=== PATIENT | male | born 1950 | race African-American/Black ===

== ENCOUNTER 2016-09-30 04:16 | Inpatient (IN) | payer MEDICARE, OTHER ==
[~2016-09-30] VITALS: Ht 165.1 cm; Wt 85.3 kg
[2016-09-30 05:30] VITALS: BP 138/87
[2016-09-30] MEDS: IV NORMAL SALINE 1000ML BAG 1,000 ML IV SCH ×2 (06:30→15:17)
[2016-09-30] MEDS ORDERED: ONDANSETRON PF 4 MG/2 ML VIAL. IV PRN (06:30)
[2016-09-30] MEDS ORDERED: HYDROMORPHONE 2 MG/ML VIAL. IV PRN (06:30)
[2016-09-30] MEDS ORDERED: DIPHENHYDRAMINE 50 MG/ML VIAL IVP PRN (06:30)
[2016-09-30 07:00] VITALS: BP 132/86
[2016-09-30 09:40] LABS: BASO % 1 % (0-3); EOS % 0 % (0-3); HEMATOCRIT 45.8 % (39.0-53.0); HEMOGLOBIN 15.4 g/dL (13.0-17.5); LYMPH # 1.9 x10^3/uL (1.0-4.8); LYMPH % 19 % (24-48); MEAN CORPUSCULAR HEMOGLOBIN 29 pg (25-35); MEAN CORPUSCULAR HGB CONC 34 g/dL (31-37); MEAN CORPUSCULAR VOLUME 85 fL (79-100); MONO % 8 % (0-9); NEUT % 72 % (31-73); PLATELET COUNT 164 x10^3/uL (140-400); RED BLOOD COUNT 5.37 x10^6/uL (4.30-5.70); RED CELL DISTRIBUTION WIDTH 15.5 % (11.5-14.5); WHITE BLOOD COUNT 9.8 x10^3/uL (4.0-11.0)
--- NOTE | 2016-09-30 09:43 | PDOC2 ---
GI CONSULT Reason For Consult: SBO HPI: HPI: 65 y/o AA male transferred from [facility] in [place] w/ SBO on imaging. CT unavailable to review, previous labs notable for elevated lactic acid 2.89. PMH significant for diverticulitis s/p bowel resection ~3 years ago w/ ostomy ( and take-down). Believes had a colonoscopy around that time as well. He says epigastric/LUQ pain began suddenly around 6:00 p.m. last night after eating dinner; he believes this was due to eating too quickly. Emesis x 1. Prior to onset of symptoms was feeling well w/o chronic GI issues except occasional GERD (untreated). Says last BM was 09/28; denies h/o constipation, diarrhea, hematochezia/melena. No weight loss, dysphagia. No previous EGD. Reports feeling much better w/ NG tube; now denies nausea, pain, and is feeling less bloated. Reports just passed gas. PMH: PMH: HTN, COPD, GERD, diverticulitis s/p bowel resection w/ ostomy/take-down FH: Family History: No pertinent hx (denies GI cancers) Social History: Smoke: Quit ALCOHOL: other (sober 5 months, previously drank heavily) ROS: GEN: Denies fevers, chills, sweats HEENT: Denies blurred vision, sore throat CV: Denies chest pain RESP: Denies shortness of air, cough GI: Per HPI : Denies hematuria, dysuria ENDO: Denies weight changes NEURO: Denies confusion, dizziness MSK: Denies weakness, joint pain/swelling SKIN: Denies jaundice, pruritus VItals: Vitals: Vital Signs Date Time Temp Pulse Resp B/P Pulse Ox O2 Delivery O2 Flow Rate FiO2 09/30/16 06:26 Room Air 09/30/16 05:30 97.9 90 18 138/87 96 97.9 Labs: Labs: - Allergies: Coded Allergies: No Known Drug Allergies (Unverified , 09/30/16) Medications: Current Medications Medications (Trade) Dose Ordered Sig/Suhas Route PRN Reason Start Time Stop Time Status Last Admin Dose Admin Sodium Chloride (Iv Sodium Chloride 0.9% 1000ml Bag) 1,000 ml @ 100 mls/hr Q10H IV 09/30/16 06:30 09/30/16 06:30 Imaging: Imaging: - PE: GEN: NAD HEENT: Atraumatic, PERRL LUNGS: CTAB HEART: RRR ABD: BS+, some distention, non-tender, midline and LLQ ostomy scar, NG w/ minimal dark output EXTREMITY: No edema SKIN: No rashes, no jaundice NEURO/PSYCH: A & O 3 A/P: A/P: SBO -transferred from [facility] in [place], no imaging to review Abd pain, vomiting, abd distention -all improved w/ NG - - > feeling better, now passing gas H/o diverticulitis s/p bowel resection CRC screen -reports colonoscopy ~3 years ago GERD -occasional, untreated, no previous EGD Elevated lactic acid -at [facility] -- Seems improved. Will check KUB and recheck lactic acid. PRINCE ZAMARRIPA Sep 30, 2016 09:42
[2016-09-30 09:49] LABS: INR 1.2 (0.8-1.1); PROTHROMBIN TIME PATIENT 14.6 SEC (11.7-14.0)
[2016-09-30 09:53] LABS: CALCIUM 8.8 mg/dL (8.5-10.1); CREATININE 0.9 mg/dL (0.7-1.3); GFR 103.1; POTASSIUM 3.6 mmol/L (3.5-5.1)
--- NOTE | 2016-09-30 10:09 | PDOC1 ---
History and Physical Date of Admission Date of Admission DATE: 09/30/16 TIME: 10:03 Identification/Chief Complaint Chief Complaint abd pain Source Source: Chart review, Patient History of Present Illness History of Present Illness Mr. Ramirez, is a 65 y/o AA male. [facility] [place] w/ abd abd distention and abd pain. Sudden onset of pain last PM NG tube placed overnight, initial pain improvement was slight, marked distention noted by ER doc for transfer CT consistent w/ SBO reported min lactic acid elevation and lipase elevation Large bowel resection done 3 years ago w/ ostomy NG is LIS, he feels much better, has flatus and Abd less distended this AM no stool 2 days Past Medical History Cardiovascular: HTN Musculoskeletal: low back pain, Osteoarthritis, Stiffness (ankle) ENT: No pertinent hx Renal/: No pertinent hx Endocrine: No pertinent hx Dermatology: No pertinent hx Past Surgical History Past Surgical History: Colon Resection Family History Family History: No Significant Social History Smoke: No ALCOHOL: none (sober 5 months, previously drank heavily) Drugs: None Current Medications Current Medications Current Medications Morphine Sulfate 4 mg PRN Q2HR PRN IV SEVERE PAIN; Start 09/30/16 at 06:30 Hydromorphone HCl (Dilaudid) 1 mg PRN Q4HRS PRN IV SEVERE PAIN; Start 09/30/16 at 06:30 Ondansetron HCl (Zofran) 4 mg PRN Q8HRS PRN IV NAUSEA/VOMITING; Start 09/30/16 at 06:30 Diphenhydramine HCl 25 mg 25 mg PRN Q6HRS PRN IVP ITCHING; Start 09/30/16 at 06 :30 Sodium Chloride (Iv Sodium Chloride 0.9% 1000ml Bag) 1,000 ml @ 100 mls/hr Q10H IV Last administered on 09/30/16t 06:30; Start 09/30/16 at 06:30 Allergies Allergies: Coded Allergies: No Known Drug Allergies (Unverified , 09/30/16) ROS General: No: Appetite, Chills, Fatigue, Malaise, Night Sweats, Other PSYCHOLOGICAL ROS: No: Anxiety, Behavioral Disorder, Concentration difficultie , Decreased libido, Depression, Disorientation, Hallucinations, Hostility, Irritablity, Memory difficulties, Mood Swings, Obsessive thoughts, Other, Physical abuse, Sexual abuse, Sleep disturbances, Suicidal ideation Eyes: No Blurry vision, No Decreased vision, No Double vision, No Dry eyes, No Excessive tearing, No Eye Pain, No Itchy Eyes, No Loss of vision, No Other, No Photophobia, No Scotomata, No Uses contacts, No Uses glasses HEENT: No: Epistaxis, Heacaches, Hearing change, Nasal congestion, Nasal discharge, Oral lesions, Other, Sinus pain, Sneezing, Snoring, Sore Throat, Tinnitus, Vertigo, Visual Changes, Vocal changes Respiratory: No: Cough, Hemoptysis, Orthopnea, Other, Pleuritic Pain, SOB with excertion, Shortness of breath, Sputum Changes, Stridor, Tachypnea, Wheezing Cardiovascular: No Chest Pain, No Edema, No Lt Headedness, No Orthopnea, No Other, No Palpitations, No Paroxysmal Noc. Dyspnea Gastrointestinal: Yes Abdominal Pain, Yes Nausea, Yes Vomiting, No Constipation, No Diarrhea, No Hematochezia, No Melena, No Other Genitourinary: No , No , No , No , No , No , No , No Discharge, No Dysuria, No Flank Pain, No Frequency, No Hematuria, No Incontinence, No Other, No Pain, No Retention, No Urgency Musculoskeletal: Yes Joint Pain, Yes Joint Stiffness, Yes Pain In: (back, ankle ), No Gait Disturbance, No Joint Swelling, No Muscle Pain, No Muscular Weakness , No Other, No Swelling In: Neurological: No Behavorial Changes, No Bowel/Bladder ControlChng, No Confusion , No Dizziness, No Gait Disturbance, No Headaches, No Impaired Coord/balance, No Memory Loss, No Numbness/Tingling, No Other, No Seizures, No Speech Problems , No Tremors, No Visual Changes, No Weakness Skin: No Acne, No Dry Skin, No Eczema, No Hair Changes, No Lumps, No Mole Changes, No Mottling, No Nail Changes, No Other, No Pruritus, No Rash, No Skin Lesion Changes Physical Exam General: Alert, mild distress HEENT: Atraumatic, PERRLA, EOMI, Mucous membr. moist/pink Lungs: Clear to auscultation, Normal air movement Heart: no gallops, no murmurs Abdomen: Normal bowel sounds, Soft, No masses, Other (extensive scar, keloid from prior surg, midline scar, , less distended) Rectal Exam: not examined Extremities: No clubbing, No cyanosis, No edema, Normal pulses Skin: No rashes, No significant lesion Neuro: Normal speech, Normal tone, Sensation intact Psych/Mental Status: Mental status NL, Mood NL Vitals Vitals Vital Signs Date Time Temp Pulse Resp B/P Pulse Ox O2 Delivery O2 Flow Rate FiO2 09/30/16 07:00 98.2 98 20 132/86 97 Room Air 98.2 Labs Labs Laboratory Tests Test 09/30/16 09:25 White Blood Count 9.8x10^3/uL (4.0-11.0) Red Blood Count 5.37x10^6/uL (4.30-5.70) Hemoglobin 15.4g/dL (13.0-17.5) Hematocrit 45.8% (39.0-53.0) Mean Corpuscular Volume 85fL (79-100) Mean Corpuscular Hemoglobin 29pg (25-35) Mean Corpuscular Hemoglobin Concent 34g/dL (31-37) Red Cell Distribution Width 15.5% (11.5-14.5) Platelet Count 164x10^3/uL (140-400) Neutrophils (%) (Auto) 72% (31-73) Lymphocytes (%) (Auto) 19% (24-48) Monocytes (%) (Auto) 8% (0-9) Eosinophils (%) (Auto) 0% (0-3) Basophils (%) (Auto) 1% (0-3) Neutrophils # (Auto) 7.1x10^3uL (1.8-7.7) Lymphocytes # (Auto) 1.9x10^3/uL (1.0-4.8) Monocytes # (Auto) 0.8x10^3/uL (0.0-1.1) Eosinophils # (Auto) 0.0x10^3/uL (0.0-0.7) Basophils # (Auto) 0.0x10^3/uL (0.0-0.2) Prothrombin Time 14.6SEC (11.7-14.0) Prothromb Time International Ratio 1.2 (0.8-1.1) Sodium Level 138mmol/L (136-145) Potassium Level 3.6mmol/L (3.5-5.1) Chloride Level 103mmol/L (98-107) Carbon Dioxide Level 25mmol/L (21-32) Anion Gap 10 (6-14) Blood Urea Nitrogen 12mg/dL (8-26) Creatinine 0.9mg/dL (0.7-1.3) Estimated GFR (Cockcroft-Gault) 103.1 Glucose Level 125mg/dL (70-99) Calcium Level 8.8mg/dL (8.5-10.1) Laboratory Tests Test 09/30/16 09:25 White Blood Count 9.8x10^3/uL (4.0-11.0) Red Blood Count 5.37x10^6/uL (4.30-5.70) Hemoglobin 15.4g/dL (13.0-17.5) Hematocrit 45.8% (39.0-53.0) Mean Corpuscular Volume 85fL (79-100) Mean Corpuscular Hemoglobin 29pg (25-35) Mean Corpuscular Hemoglobin Concent 34g/dL (31-37) Red Cell Distribution Width 15.5% (11.5-14.5) Platelet Count 164x10^3/uL (140-400) Neutrophils (%) (Auto) 72% (31-73) Lymphocytes (%) (Auto) 19% (24-48) Monocytes (%) (Auto) 8% (0-9) Eosinophils (%) (Auto) 0% (0-3) Basophils (%) (Auto) 1% (0-3) Neutrophils # (Auto) 7.1x10^3uL (1.8-7.7) Lymphocytes # (Auto) 1.9x10^3/uL (1.0-4.8) Monocytes # (Auto) 0.8x10^3/uL (0.0-1.1) Eosinophils # (Auto) 0.0x10^3/uL (0.0-0.7) Basophils # (Auto) 0.0x10^3/uL (0.0-0.2) Prothrombin Time 14.6SEC (11.7-14.0) Prothromb Time International Ratio 1.2 (0.8-1.1) Sodium Level 138mmol/L (136-145) Potassium Level 3.6mmol/L (3.5-5.1) Chloride Level 103mmol/L (98-107) Carbon Dioxide Level 25mmol/L (21-32) Anion Gap 10 (6-14) Blood Urea Nitrogen 12mg/dL (8-26) Creatinine 0.9mg/dL (0.7-1.3) Estimated GFR (Cockcroft-Gault) 103.1 Glucose Level 125mg/dL (70-99) Calcium Level 8.8mg/dL (8.5-10.1) VTE Prophylaxis Ordered VTE Prophylaxis Devices: Yes VTE Pharmacological Prophylaxi: No Assessment/Plan Assessment/Plan Acute abd pain with bloating, SBO on CT scan extensive prior abd surg with partial colectomy due to diverticular disease obesity, BMI 32 sore throat NG LIS, abd pain better, has flatus AFIA MEADE MD Sep 30, 2016 10:09
--- NOTE | 2016-09-30 10:12 | RAD ---
Portable abdomen, 09/30/2016: History: Vomiting, partial small bowel obstruction A supine view of the abdomen was obtained. No previous imaging is available for correlative purposes. There is mild gaseous distention of a couple of small bowel loops in the central abdomen. There is gas and stool in the colon without evidence of colonic distention. There is no evidence of organomegaly. No abnormal abdominal calcifications are seen. An NG tube is incompletely delineated in the left upper quadrant, apparently extending into the stomach. IMPRESSION: Mild gaseous distention of several small bowel loops in the midabdomen compatible with low-grade partial small bowel obstruction or minimal ileus.
[2016-09-30] MEDS ORDERED: PHENOL ORAL SPRAY 177ML BOTTLE. PO PRN (10:15)
[2016-09-30 11:00] VITALS: BP 140/80
--- NOTE | 2016-09-30 12:31 | PDOC2 ---
MARIELLA GONZALEZ [employer] 09/30/16 1231: CONSULT Date of Consult Date of Consult DATE: 09/30/16 TIME: 12:26 Reason for Consult Reason for Consult: sbo Referring Physician Referring Physician: ER Identification/Chief Complaint Chief Complaint abdominal pain Source Source: Chart review, Patient History of Present Illness Reason for Visit: Acute onset of epigastric abdominal pain yesterday after dinner. + emesis, distention. Has a history of diverticulitis requiring operation and ostomy/ reversal. Currently no pain, + flatus and overall feeling better Past Medical History Cardiovascular: HTN Musculoskeletal: low back pain, Osteoarthritis, Stiffness (ankle) ENT: No pertinent hx Renal/: No pertinent hx Endocrine: No pertinent hx Dermatology: No pertinent hx Past Surgical History Past Surgical History: Colon Resection Family History Family History: No Significant Social History No ALCOHOL: none (sober 5 months, previously drank heavily) Drugs: None Current Medications Current Medications Current Medications Morphine Sulfate 4 mg PRN Q2HR PRN IV SEVERE PAIN; Start 09/30/16 at 06:30 Hydromorphone HCl (Dilaudid) 1 mg PRN Q4HRS PRN IV SEVERE PAIN; Start 09/30/16 at 06:30 Ondansetron HCl (Zofran) 4 mg PRN Q8HRS PRN IV NAUSEA/VOMITING; Start 09/30/16 at 06:30 Diphenhydramine HCl 25 mg 25 mg PRN Q6HRS PRN IVP ITCHING; Start 09/30/16 at 06 :30 Sodium Chloride (Iv Sodium Chloride 0.9% 1000ml Bag) 1,000 ml @ 100 mls/hr Q10H IV Last administered on 09/30/16t 06:30; Start 09/30/16 at 06:30 Throat Lozenges (Cepacol Sore Throat Lozenge) 1 kristen PRN Q2HRS PRN PO SORE THROAT; Start 09/30/16 at 10:15 Throat Lozenges (Chloraseptic) 1 spray PRN Q2HR PRN PO SORE THROAT; Start 09/30 at 10:15 Allergies Allergies: Coded Allergies: No Known Drug Allergies (Unverified , 09/30/16) ROS General: No: Chills, Other (fevers) PSYCHOLOGICAL ROS: No: Anxiety, Depression Eyes: No Blurry vision, No Double vision HEENT: No: Heacaches, Sore Throat Hematological and Lymphatic: No: Bleeding Problems, Blood Clots Respiratory: No: Cough, Shortness of breath Cardiovascular: No Chest Pain, No Palpitations Gastrointestinal: Yes Other (see hpi) Genitourinary: No Dysuria, No Hematuria Musculoskeletal: No Joint Pain, No Muscle Pain Neurological: No Impaired Coord/balance, No Numbness/Tingling Skin: No Pruritus, No Rash Physical Exam General: Alert, Oriented X3, Cooperative, No acute distress HEENT: Other (NG no drainage ) Lungs: Clear to auscultation, Normal air movement Heart: Regular rate, Normal S1, Normal S2 Abdomen: Soft, No tenderness, Other (large midline scar) Extremities: No clubbing, No cyanosis Skin: No rashes, No breakdown Neuro: Normal gait, Sensation intact Psych/Mental Status: Mental status NL, Mood NL MUSCULOSKELETAL: No deformity, No swelling Vitals VITALS Vital Signs Date Time Temp Pulse Resp B/P Pulse Ox O2 Delivery O2 Flow Rate FiO2 09/30/16 11:00 98.0 94 18 140/80 97 Room Air 98.0 Labs Labs Laboratory Tests Test 09/30/16 09:25 White Blood Count 9.8x10^3/uL (4.0-11.0) Red Blood Count 5.37x10^6/uL (4.30-5.70) Hemoglobin 15.4g/dL (13.0-17.5) Hematocrit 45.8% (39.0-53.0) Mean Corpuscular Volume 85fL (79-100) Mean Corpuscular Hemoglobin 29pg (25-35) Mean Corpuscular Hemoglobin Concent 34g/dL (31-37) Red Cell Distribution Width 15.5% (11.5-14.5) Platelet Count 164x10^3/uL (140-400) Neutrophils (%) (Auto) 72% (31-73) Lymphocytes (%) (Auto) 19% (24-48) Monocytes (%) (Auto) 8% (0-9) Eosinophils (%) (Auto) 0% (0-3) Basophils (%) (Auto) 1% (0-3) Neutrophils # (Auto) 7.1x10^3uL (1.8-7.7) Lymphocytes # (Auto) 1.9x10^3/uL (1.0-4.8) Monocytes # (Auto) 0.8x10^3/uL (0.0-1.1) Eosinophils # (Auto) 0.0x10^3/uL (0.0-0.7) Basophils # (Auto) 0.0x10^3/uL (0.0-0.2) Prothrombin Time 14.6SEC (11.7-14.0) Prothromb Time International Ratio 1.2 (0.8-1.1) Sodium Level 138mmol/L (136-145) Potassium Level 3.6mmol/L (3.5-5.1) Chloride Level 103mmol/L (98-107) Carbon Dioxide Level 25mmol/L (21-32) Anion Gap 10 (6-14) Blood Urea Nitrogen 12mg/dL (8-26) Creatinine 0.9mg/dL (0.7-1.3) Estimated GFR (Cockcroft-Gault) 103.1 Glucose Level 125mg/dL (70-99) Lactic Acid Level 1.4mmol/L (0.4-2.0) Calcium Level 8.8mg/dL (8.5-10.1) Laboratory Tests Test 09/30/16 09:25 White Blood Count 9.8x10^3/uL (4.0-11.0) Red Blood Count 5.37x10^6/uL (4.30-5.70) Hemoglobin 15.4g/dL (13.0-17.5) Hematocrit 45.8% (39.0-53.0) Mean Corpuscular Volume 85fL (79-100) Mean Corpuscular Hemoglobin 29pg (25-35) Mean Corpuscular Hemoglobin Concent 34g/dL (31-37) Red Cell Distribution Width 15.5% (11.5-14.5) Platelet Count 164x10^3/uL (140-400) Neutrophils (%) (Auto) 72% (31-73) Lymphocytes (%) (Auto) 19% (24-48) Monocytes (%) (Auto) 8% (0-9) Eosinophils (%) (Auto) 0% (0-3) Basophils (%) (Auto) 1% (0-3) Neutrophils # (Auto) 7.1x10^3uL (1.8-7.7) Lymphocytes # (Auto) 1.9x10^3/uL (1.0-4.8) Monocytes # (Auto) 0.8x10^3/uL (0.0-1.1) Eosinophils # (Auto) 0.0x10^3/uL (0.0-0.7) Basophils # (Auto) 0.0x10^3/uL (0.0-0.2) Prothrombin Time 14.6SEC (11.7-14.0) Prothromb Time International Ratio 1.2 (0.8-1.1) Sodium Level 138mmol/L (136-145) Potassium Level 3.6mmol/L (3.5-5.1) Chloride Level 103mmol/L (98-107) Carbon Dioxide Level 25mmol/L (21-32) Anion Gap 10 (6-14) Blood Urea Nitrogen 12mg/dL (8-26) Creatinine 0.9mg/dL (0.7-1.3) Estimated GFR (Cockcroft-Gault) 103.1 Glucose Level 125mg/dL (70-99) Lactic Acid Level 1.4mmol/L (0.4-2.0) Calcium Level 8.8mg/dL (8.5-10.1) Assessment/Plan Assessment/Plan sbo, [facility]--will view when loaded into system improved now with some flatus will leave NG for now, NPO, hydration KAVEH KILPATRICK MD 09/30/16 1630: CONSULT Allergies Allergies: Coded Allergies: No Known Drug Allergies (Unverified , 09/30/16) Assessment/Plan Assessment/Plan Reviewed, agree with above assessment/plan MARIELLA GONZALEZ APRN Sep 30, 2016 12:31 KAVEH KILPATRICK MD Sep 30, 2016 16:30
[2016-09-30 15:00] VITALS: BP 144/91
[2016-09-30] MEDS: MORPHINE SULFATE 4 MG/ML DISP.SYRIN. IV PRN ×3 (15:18→22:45)
[2016-09-30] MEDS: BENZOCAINE/MENTHOL LOZENGE. PO PRN ×2 (15:27→18:44)
[2016-09-30 19:00] VITALS: BP 150/91
[2016-09-30] MEDS ORDERED: ACETAMINOPHEN 650 MG SUPP.RECT. PR PRN (22:00)
[2016-09-30 23:00] VITALS: BP 149/94
[2016-10-01 01:48] LABS: NEG OBC GOB NEG; POS OBC GOB POS
[2016-10-01] MEDS: PANTOPRAZOLE IV PUSH 40 MG VIAL. IVP SCH ×3 (02:44→21:12)
[2016-10-01] MEDS: KETOROLAC 15 MG/ML VIAL. IV PRN (02:45)
[2016-10-01] MEDS: IV NORMAL SALINE 1000ML BAG 1,000 ML IV SCH ×3 (02:47→19:54)
[2016-10-01 03:00] VITALS: BP 157/101
[2016-10-01 05:07] LABS: HEMATOCRIT 48.1 % (39.0-53.0); HEMOGLOBIN 15.8 g/dL (13.0-17.5); RED BLOOD COUNT 5.48 x10^6/uL (4.30-5.70); RED CELL DISTRIBUTION WIDTH 15.5 % (11.5-14.5); WHITE BLOOD COUNT 10.2 x10^3/uL (4.0-11.0)
[2016-10-01 07:48] VITALS: BP 162/92
[2016-10-01] MEDS: MORPHINE SULFATE 4 MG/ML DISP.SYRIN. IV PRN ×4 (08:09→19:52)
--- NOTE | 2016-10-01 09:58 | PDOC ---
PROGRESS NOTES Subjective Subjective no pain, states he's passing gas, no stool Objective Objective Vital Signs Date Time Temp Pulse Resp B/P Pulse Ox O2 Delivery O2 Flow Rate FiO2 10/01/16 08:40 Room Air 10/01/16 07:48 98.2 83 18 162/92 97 98.2 Intake and Output 10/01/16 07:00 Intake Total 0 ml Output Total 3525 ml Balance -3525 ml Intake Oral 0 ml Output Urine Total 2325 ml Gastric Drainage Total 1200 ml Physical Exam Abdomen: Soft, No tenderness Heart: Regular rate Extremities: No clubbing, No cyanosis General: Alert, Oriented X3 HEENT: Atraumatic Lungs: Clear to auscultation Neuro: Normal speech Psych/Mental Status: Mental status NL Assessment Assessment SBO vs ileus Plan Plan of Care Clinical improvement, passing gas; will check abdominal films today, if improved then NG trial; if obstructive pattern then will plan gastrograffin small bowel series Comment Review of Relevant I have reviewed the following items kirill (where applicable) has been applied. Labs Laboratory Tests Test 09/30/16 06:40 09/30/16 09:25 10/01/16 01:30 10/01/16 04:35 Nasal Screen MRSA (PCR) Negative (Negative) White Blood Count 9.8x10^3/uL (4.0-11.0) 10.2x10^3/uL (4.0-11.0) Red Blood Count 5.37x10^6/uL (4.30-5.70) 5.48x10^6/uL (4.30-5.70) Hemoglobin 15.4g/dL (13.0-17.5) 15.8g/dL (13.0-17.5) Hematocrit 45.8% (39.0-53.0) 48.1% (39.0-53.0) Mean Corpuscular Volume 85fL (79-100) 88fL (79-100) Mean Corpuscular Hemoglobin 29pg (25-35) 29pg (25-35) Mean Corpuscular Hemoglobin Concent 34g/dL (31-37) 33g/dL (31-37) Red Cell Distribution Width 15.5% (11.5-14.5) 15.5% (11.5-14.5) Platelet Count 164x10^3/uL (140-400) 156x10^3/uL (140-400) Neutrophils (%) (Auto) 72% (31-73) Lymphocytes (%) (Auto) 19% (24-48) Monocytes (%) (Auto) 8% (0-9) Eosinophils (%) (Auto) 0% (0-3) Basophils (%) (Auto) 1% (0-3) Neutrophils # (Auto) 7.1x10^3uL (1.8-7.7) Lymphocytes # (Auto) 1.9x10^3/uL (1.0-4.8) Monocytes # (Auto) 0.8x10^3/uL (0.0-1.1) Eosinophils # (Auto) 0.0x10^3/uL (0.0-0.7) Basophils # (Auto) 0.0x10^3/uL (0.0-0.2) Prothrombin Time 14.6SEC (11.7-14.0) Prothromb Time International Ratio 1.2 (0.8-1.1) Sodium Level 138mmol/L (136-145) Potassium Level 3.6mmol/L (3.5-5.1) Chloride Level 103mmol/L (98-107) Carbon Dioxide Level 25mmol/L (21-32) Anion Gap 10 (6-14) Blood Urea Nitrogen 12mg/dL (8-26) Creatinine 0.9mg/dL (0.7-1.3) Estimated GFR (Cockcroft-Gault) 103.1 Glucose Level 125mg/dL (70-99) Lactic Acid Level 1.4mmol/L (0.4-2.0) Calcium Level 8.8mg/dL (8.5-10.1) Gastric Fluid Occult Blood Positive (NEG) Laboratory Tests Test 10/01/16 01:30 10/01/16 04:35 Gastric Fluid Occult Blood Positive (NEG) White Blood Count 10.2x10^3/uL (4.0-11.0) Red Blood Count 5.48x10^6/uL (4.30-5.70) Hemoglobin 15.8g/dL (13.0-17.5) Hematocrit 48.1% (39.0-53.0) Mean Corpuscular Volume 88fL (79-100) Mean Corpuscular Hemoglobin 29pg (25-35) Mean Corpuscular Hemoglobin Concent 33g/dL (31-37) Red Cell Distribution Width 15.5% (11.5-14.5) Platelet Count 156x10^3/uL (140-400) Medications Current Medications Morphine Sulfate 4 mg PRN Q2HR PRN IV SEVERE PAIN Last administered on 08:09; Start 09/30/16 at 06:30 Hydromorphone HCl (Dilaudid) 1 mg PRN Q4HRS PRN IV SEVERE PAIN; Start 09/30/16 at 06:30 Ondansetron HCl (Zofran) 4 mg PRN Q8HRS PRN IV NAUSEA/VOMITING; Start 09/30/16 at 06:30 Diphenhydramine HCl 25 mg 25 mg PRN Q6HRS PRN IVP ITCHING; Start 09/30/16 at 06 :30 Sodium Chloride (Iv Sodium Chloride 0.9% 1000ml Bag) 1,000 ml @ 100 mls/hr Q10H IV Last administered on 10/01/16 02:47; Start 09/30/16 at 06:30 Throat Lozenges (Cepacol Sore Throat Lozenge) 1 kristen PRN Q2HRS PRN PO SORE THROAT Last administered on 09/30/16 18:44; Start 09/30/16 at 10:15 Throat Lozenges (Chloraseptic) 1 spray PRN Q2HR PRN PO SORE THROAT Last administered on 10/01/16 02:47; Start 09/30/16 at 10:15 Acetaminophen (Tylenol) 650 mg PRN Q4HRS PRN TN MILD PAIN / TEMP; Start at 22:00 Ketorolac Tromethamine (Toradol) 15 mg PRN DAILY PRN IV MODERATE PAIN Last administered on 10/01/16 02:45; Start 10/01/16 at 02:30; Stop 10/06/16 at 02:29 Pantoprazole Sodium (Protonix Vial) 40 mg BID IVP Last administered on 08:07; Start 10/01/16 at 02:30 Vitals/I & O Vital Sign - Last 24 Hours 2/21/09/30/16 09/30/16 09/30/16 11:00 15:00 15:18 18:44 Temp 98.0 98.3 98.0 98.3 Pulse 94 94 Resp 18 18 B/P 140/80 144/91 Pulse Ox 97 93 O2 Delivery Room Air Room Air Room Air Room Air 09/30/16 09/30/16 09/30/16 10/01/16 19:00 20:00 23:00 03:00 Temp 98.3 98.3 98.3 98.3 98.3 98.3 Pulse 90 97 96 Resp 18 18 18 B/P 150/91 149/94 157/101 Pulse Ox 93 93 96 O2 Delivery Room Air Room Air Room Air Room Air 10/01/16 10/01/16 10/01/16 07:48 08:09 08:40 Temp 98.2 98.2 Pulse 83 Resp 18 B/P 162/92 Pulse Ox 97 O2 Delivery Room Air Room Air Room Air Intake and Output 09/30/16 09/30/16 10/01/16 15:00 23:00 07:00 Intake Total 0 ml 0 ml Output Total 3250 ml 275 ml Balance -3250 ml -275 ml KAVHE KILPATRICK MD Oct 01, 2016 09:58
[2016-10-01 10:46] VITALS: BP 136/88
--- NOTE | 2016-10-01 13:31 | PDOC ---
Subjective: Subjective: Per pt - passing gas, no abd pain, feeling better. Objective: Objective: Per RN - gastric contents dark overnight, has slowed today, orders from Dr. Lester to clamp NG. Vital Signs: Vital Signs Date Time Temp Pulse Resp B/P Pulse Ox O2 Delivery O2 Flow Rate FiO2 10/01/16 11:10 95 Room Air 10/01/16 10:46 98.5 94 18 136/88 98.5 Labs: Laboratory Tests Test 10/01/16 01:30 10/01/16 04:35 Gastric Fluid Occult Blood Positive White Blood Count 10.2x10^3/uL Red Blood Count 5.48x10^6/uL Hemoglobin 15.8g/dL Hematocrit 48.1% Mean Corpuscular Volume 88fL Mean Corpuscular Hemoglobin 29pg Mean Corpuscular Hemoglobin Concent 33g/dL Red Cell Distribution Width 15.5% Platelet Count 156x10^3/uL Imaging: KUB 09/30/16 IMPRESSION: Mild gaseous distention of several small bowel loops in the midabdomen compatible with low-grade partial small bowel obstruction or minimal ileus. Acute Abd Series 09/30/16 PENDING PE: GEN: NAD LUNGS: CTAB HEART: RRR ABD: NABS, NT, NG canister w/ dark contents NEURO/PSYCH: A & O 3 A/P: SBO -imaging as above -NG w/ dark contents overnight, gastric occult blood +, started on IV PPI -abd pain/distention improved, passing gas H/o diverticulitis s/p bowel resection GERD -occasional, untreated, no previous EGD -- Surgery plans to clamp NG. Agree w/ PPI. PRINCE ZAMARRIPA Oct 01, 2016 13:31
--- NOTE | 2016-10-01 13:48 | RAD ---
Acute abdomen series with chest, 3 views, 10/01/2016: History: Small bowel obstruction versus ileus Comparison is made to yesterday's study. Mild gaseous distention of small bowel loops in the central abdomen has regressed. There is a moderate amount of gas throughout the colon without significant colonic distention. No free air is seen in the abdomen. An NG tube extends into the fundus of the stomach. Scattered vascular calcifications are evident. The heart size and pulmonary vascularity are normal. There is tortuosity of the thoracic aorta. There is minimal linear atelectasis in the right base. IMPRESSION: 1. Improving mild small bowel distention. 2. The NG tube extends into the fundus of the stomach.
[2016-10-01 14:42] VITALS: BP 135/91
[2016-10-01 19:30] VITALS: BP 171/102
[2016-10-01 23:30] VITALS: BP 167/104
[2016-10-02 03:08] VITALS: BP 142/99
[2016-10-02] MEDS: MORPHINE SULFATE 4 MG/ML DISP.SYRIN. IV PRN (04:44)
[2016-10-02] MEDS: IV NORMAL SALINE 1000ML BAG 1,000 ML IV SCH ×3 (05:46→21:23)
[2016-10-02 06:36] LABS: BASO # 0.1 x10^3/uL (0.0-0.2); BASO % 1 % (0-3); EOS % 1 % (0-3); HEMOGLOBIN 15.9 g/dL (13.0-17.5); LYMPH % 18 % (24-48); MEAN CORPUSCULAR HEMOGLOBIN 29 pg (25-35); MEAN CORPUSCULAR HGB CONC 34 g/dL (31-37); MEAN CORPUSCULAR VOLUME 86 fL (79-100); MONO % 10 % (0-9); NEUT % 69 % (31-73); PLATELET COUNT 164 x10^3/uL (140-400); RED BLOOD COUNT 5.46 x10^6/uL (4.30-5.70); RED CELL DISTRIBUTION WIDTH 15.3 % (11.5-14.5); WHITE BLOOD COUNT 10.9 x10^3/uL (4.0-11.0)
[2016-10-02 06:50] LABS: ALBUMIN 3.6 g/dL (3.4-5.0); ALBUMIN/GLOBULIN RATIO 0.8 (1.0-1.7); CALCIUM 8.7 mg/dL (8.5-10.1); CREATININE 0.8 mg/dL (0.7-1.3); GFR 118.1; MAGNESIUM 1.7 mg/dL (1.8-2.4); POTASSIUM 3.8 mmol/L (3.5-5.1); TOTAL BILIRUBIN 0.9 mg/dL (0.2-1.0); TOTAL PROTEIN 8.3 g/dL (6.4-8.2)
[2016-10-02 07:00] VITALS: BP 192/110
[2016-10-02] MEDS: MORPHINE SULFATE 2 MG/ML DISP.SYRIN. IV PRN ×3 (08:22→19:46)
[2016-10-02] MEDS: PANTOPRAZOLE IV PUSH 40 MG VIAL. IVP SCH (09:08)
--- NOTE | 2016-10-02 10:01 | PDOC ---
Subjective: Subjective: Choked on phlegm this morning, spit out some mucous. Doesn't want NG clamped. Objective: Objective: Per RN - NG put to suction again this morning around shift change because pt felt like he was choking. Vital Signs: Vital Signs Date Time Temp Pulse Resp B/P Pulse Ox O2 Delivery O2 Flow Rate FiO2 10/02/16 09:08 Room Air 10/02/16 07:00 98.2 91 22 192/110 97 98.2 Labs: Laboratory Tests Test 10/02/16 05:35 10/02/16 05:45 White Blood Count 10.9x10^3/uL Red Blood Count 5.46x10^6/uL Hemoglobin 15.9g/dL Hematocrit 47.0% Mean Corpuscular Volume 86fL Mean Corpuscular Hemoglobin 29pg Mean Corpuscular Hemoglobin Concent 34g/dL Red Cell Distribution Width 15.3% Platelet Count 164x10^3/uL Neutrophils (%) (Auto) 69% Lymphocytes (%) (Auto) 18% Monocytes (%) (Auto) 10% Eosinophils (%) (Auto) 1% Basophils (%) (Auto) 1% Neutrophils # (Auto) 7.5x10^3uL Lymphocytes # (Auto) 2.0x10^3/uL Monocytes # (Auto) 1.1x10^3/uL Eosinophils # (Auto) 0.1x10^3/uL Basophils # (Auto) 0.1x10^3/uL Sodium Level 137mmol/L Potassium Level 3.8mmol/L Chloride Level 102mmol/L Carbon Dioxide Level 22mmol/L Anion Gap 13 Blood Urea Nitrogen 11mg/dL Creatinine 0.8mg/dL Estimated GFR (Cockcroft-Gault) 118.1 BUN/Creatinine Ratio 14 Glucose Level 88mg/dL Calcium Level 8.7mg/dL Magnesium Level 1.7mg/dL Total Bilirubin 0.9mg/dL Aspartate Amino Transf (AST/SGOT) 34U/L Alanine Aminotransferase (ALT/SGPT) 31U/L Alkaline Phosphatase 85U/L Total Protein 8.3g/dL Albumin 3.6g/dL Albumin/Globulin Ratio 0.8 Imaging: Acute Abd Series 10/01/16 IMPRESSION: 1. Improving mild small bowel distention. 2. The NG tube extends into the fundus of the stomach. PE: GEN: NAD LUNGS: clear anteriorly HEART: RRR ABD: BS+, some distention but stable, non-tender, NG to suction - seems minimal output if any (w/ contents in canister from previous days) NEURO/PSYCH: A & O 3 A/P: Ileus/partial SBO --symptoms and imaging improved but NG to suction again this morning, pt reported choking on mucous H/o diverticulitis s/p bowel resection GERD -occasional, no previous EGD -on IV PPI here w/ gastric occult blood + -- Continue PPI - will change to QD w/ stable Hgb. ?re-clamp PRINCE LINO Oct 02, 2016 10:01
--- NOTE | 2016-10-02 10:41 | PDOC ---
PROGRESS NOTES Chief Complaint Chief Complaint CC: Abd pain 1. Small bowel obstruction 2. 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 HTN 4. Low back pain 5. Osteoarthritis 6. Obesity, BMI 32 7. GERD 8. H/O diverticulitis History of Present Illness History of Present Illness Pt resting in bed with NAD NG tube is in place and set to suction Extensive abd scar tissue from previous surgery VSS DW RN Vitals Vitals Vital Signs Date Time Temp Pulse Resp B/P Pulse Ox O2 Delivery O2 Flow Rate FiO2 10/02/16 09:08 Room Air 10/02/16 07:00 98.2 91 22 192/110 97 98.2 Physical Exam General: Alert, Oriented X3 Heart: Regular rate, No murmurs Lungs: Clear, Other (No wheezing) Abdomen: Soft, No tenderness Extremities: No clubbing, No cyanosis Skin: No rashes, No breakdown Labs LABS Laboratory Tests Test 10/02/16 05:35 10/02/16 05:45 White Blood Count 10.9x10^3/uL (4.0-11.0) Red Blood Count 5.46x10^6/uL (4.30-5.70) Hemoglobin 15.9g/dL (13.0-17.5) Hematocrit 47.0% (39.0-53.0) Mean Corpuscular Volume 86fL (79-100) Mean Corpuscular Hemoglobin 29pg (25-35) Mean Corpuscular Hemoglobin Concent 34g/dL (31-37) Red Cell Distribution Width 15.3% (11.5-14.5) Platelet Count 164x10^3/uL (140-400) Neutrophils (%) (Auto) 69% (31-73) Lymphocytes (%) (Auto) 18% (24-48) Monocytes (%) (Auto) 10% (0-9) Eosinophils (%) (Auto) 1% (0-3) Basophils (%) (Auto) 1% (0-3) Neutrophils # (Auto) 7.5x10^3uL (1.8-7.7) Lymphocytes # (Auto) 2.0x10^3/uL (1.0-4.8) Monocytes # (Auto) 1.1x10^3/uL (0.0-1.1) Eosinophils # (Auto) 0.1x10^3/uL (0.0-0.7) Basophils # (Auto) 0.1x10^3/uL (0.0-0.2) Sodium Level 137mmol/L (136-145) Potassium Level 3.8mmol/L (3.5-5.1) Chloride Level 102mmol/L (98-107) Carbon Dioxide Level 22mmol/L (21-32) Anion Gap 13 (6-14) Blood Urea Nitrogen 11mg/dL (8-26) Creatinine 0.8mg/dL (0.7-1.3) Estimated GFR (Cockcroft-Gault) 118.1 BUN/Creatinine Ratio 14 (6-20) Glucose Level 88mg/dL (70-99) Calcium Level 8.7mg/dL (8.5-10.1) Magnesium Level 1.7mg/dL (1.8-2.4) Total Bilirubin 0.9mg/dL (0.2-1.0) Aspartate Amino Transf (AST/SGOT) 34U/L (15-37) Alanine Aminotransferase (ALT/SGPT) 31U/L (16-63) Alkaline Phosphatase 85U/L (46-116) Total Protein 8.3g/dL (6.4-8.2) Albumin 3.6g/dL (3.4-5.0) Albumin/Globulin Ratio 0.8 (1.0-1.7) Review of Systems Review of Systems Complains of choking on mucous Complains of passing gas Assessment and Plan Assessmemt and Plan Assessment: CC: Abd pain 1. Small bowel obstruction 2. 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 HTN 4. Low back pain 5. Osteoarthritis 6. Obesity, BMI 32 7. GERD 8. H/O diverticulitis Plan: GI is following - PPI QD, pt requested NG be set to suction because he choked on mucous, consider re-clamping Surgery following Repeat labs PTOT Continue home meds Appreciate subspecialty input Problems: Comment Review of Relevant I have reviewed the following items kirill (where applicable) has been applied. Labs Laboratory Tests Test 10/01/16 01:30 10/01/16 04:35 10/02/16 05:35 10/02/16 05:45 Gastric Fluid Occult Blood Positive (NEG) White Blood Count 10.2x10^3/uL (4.0-11.0) 10.9x10^3/uL (4.0-11.0) Red Blood Count 5.48x10^6/uL (4.30-5.70) 5.46x10^6/uL (4.30-5.70) Hemoglobin 15.8g/dL (13.0-17.5) 15.9g/dL (13.0-17.5) Hematocrit 48.1% (39.0-53.0) 47.0% (39.0-53.0) Mean Corpuscular Volume 88fL (79-100) 86fL (79-100) Mean Corpuscular Hemoglobin 29pg (25-35) 29pg (25-35) Mean Corpuscular Hemoglobin Concent 33g/dL (31-37) 34g/dL (31-37) Red Cell Distribution Width 15.5% (11.5-14.5) 15.3% (11.5-14.5) Platelet Count 156x10^3/uL (140-400) 164x10^3/uL (140-400) Neutrophils (%) (Auto) 69% (31-73) Lymphocytes (%) (Auto) 18% (24-48) Monocytes (%) (Auto) 10% (0-9) Eosinophils (%) (Auto) 1% (0-3) Basophils (%) (Auto) 1% (0-3) Neutrophils # (Auto) 7.5x10^3uL (1.8-7.7) Lymphocytes # (Auto) 2.0x10^3/uL (1.0-4.8) Monocytes # (Auto) 1.1x10^3/uL (0.0-1.1) Eosinophils # (Auto) 0.1x10^3/uL (0.0-0.7) Basophils # (Auto) 0.1x10^3/uL (0.0-0.2) Sodium Level 137mmol/L (136-145) Potassium Level 3.8mmol/L (3.5-5.1) Chloride Level 102mmol/L (98-107) Carbon Dioxide Level 22mmol/L (21-32) Anion Gap 13 (6-14) Blood Urea Nitrogen 11mg/dL (8-26) Creatinine 0.8mg/dL (0.7-1.3) Estimated GFR (Cockcroft-Gault) 118.1 BUN/Creatinine Ratio 14 (6-20) Glucose Level 88mg/dL (70-99) Calcium Level 8.7mg/dL (8.5-10.1) Magnesium Level 1.7mg/dL (1.8-2.4) Total Bilirubin 0.9mg/dL (0.2-1.0) Aspartate Amino Transf (AST/SGOT) 34U/L (15-37) Alanine Aminotransferase (ALT/SGPT) 31U/L (16-63) Alkaline Phosphatase 85U/L (46-116) Total Protein 8.3g/dL (6.4-8.2) Albumin 3.6g/dL (3.4-5.0) Albumin/Globulin Ratio 0.8 (1.0-1.7) Laboratory Tests Test 10/02/16 05:35 10/02/16 05:45 White Blood Count 10.9x10^3/uL (4.0-11.0) Red Blood Count 5.46x10^6/uL (4.30-5.70) Hemoglobin 15.9g/dL (13.0-17.5) Hematocrit 47.0% (39.0-53.0) Mean Corpuscular Volume 86fL (79-100) Mean Corpuscular Hemoglobin 29pg (25-35) Mean Corpuscular Hemoglobin Concent 34g/dL (31-37) Red Cell Distribution Width 15.3% (11.5-14.5) Platelet Count 164x10^3/uL (140-400) Neutrophils (%) (Auto) 69% (31-73) Lymphocytes (%) (Auto) 18% (24-48) Monocytes (%) (Auto) 10% (0-9) Eosinophils (%) (Auto) 1% (0-3) Basophils (%) (Auto) 1% (0-3) Neutrophils # (Auto) 7.5x10^3uL (1.8-7.7) Lymphocytes # (Auto) 2.0x10^3/uL (1.0-4.8) Monocytes # (Auto) 1.1x10^3/uL (0.0-1.1) Eosinophils # (Auto) 0.1x10^3/uL (0.0-0.7) Basophils # (Auto) 0.1x10^3/uL (0.0-0.2) Sodium Level 137mmol/L (136-145) Potassium Level 3.8mmol/L (3.5-5.1) Chloride Level 102mmol/L (98-107) Carbon Dioxide Level 22mmol/L (21-32) Anion Gap 13 (6-14) Blood Urea Nitrogen 11mg/dL (8-26) Creatinine 0.8mg/dL (0.7-1.3) Estimated GFR (Cockcroft-Gault) 118.1 BUN/Creatinine Ratio 14 (6-20) Glucose Level 88mg/dL (70-99) Calcium Level 8.7mg/dL (8.5-10.1) Magnesium Level 1.7mg/dL (1.8-2.4) Total Bilirubin 0.9mg/dL (0.2-1.0) Aspartate Amino Transf (AST/SGOT) 34U/L (15-37) Alanine Aminotransferase (ALT/SGPT) 31U/L (16-63) Alkaline Phosphatase 85U/L (46-116) Total Protein 8.3g/dL (6.4-8.2) Albumin 3.6g/dL (3.4-5.0) Albumin/Globulin Ratio 0.8 (1.0-1.7) Medications Current Medications Morphine Sulfate 4 mg PRN Q2HR PRN IV MODERATE PAIN Last administered on 04:44; Start 09/30/16 at 06:30 Hydromorphone HCl (Dilaudid) 1 mg PRN Q4HRS PRN IV SEVERE PAIN; Start 09/30/16 at 06:30 Ondansetron HCl (Zofran) 4 mg PRN Q8HRS PRN IV NAUSEA/VOMITING; Start 09/30/16 at 06:30 Diphenhydramine HCl 25 mg 25 mg PRN Q6HRS PRN IVP ITCHING; Start 09/30/16 at 06 :30 Sodium Chloride (Iv Sodium Chloride 0.9% 1000ml Bag) 1,000 ml @ 100 mls/hr Q10H IV Last administered on 10/02/16 05:46; Start 09/30/16 at 06:30 Throat Lozenges (Cepacol Sore Throat Lozenge) 1 kristen PRN Q2HRS PRN PO SORE THROAT Last administered on 09/30/16 18:44; Start 09/30/16 at 10:15 Throat Lozenges (Chloraseptic) 1 spray PRN Q2HR PRN PO SORE THROAT Last administered on 10/01/16 02:47; Start 09/30/16 at 10:15 Acetaminophen (Tylenol) 650 mg PRN Q4HRS PRN GA MILD PAIN / TEMP; Start at 22:00 Ketorolac Tromethamine (Toradol) 15 mg PRN DAILY PRN IV MODERATE PAIN Last administered on 10/01/16 02:45; Start 10/01/16 at 02:30; Stop 10/06/16 at 02:29 Pantoprazole Sodium (Protonix Vial) 40 mg BID IVP Last administered on 09:08; Start 10/01/16 at 02:30; Stop 10/02/16 at 10:00; Status DC Morphine Sulfate 2 mg PRN Q2HR PRN IV PAIN Last administered on 10/02/16 08:22 ; Start 10/01/16 at 15:30 Pantoprazole Sodium (Protonix Vial) 40 mg DAILY IVP ; Start 10/03/16 at 09:00 Vitals/I & O Vital Sign - Last 24 Hours 10/01/16 10/01/16 10/01/16 10/01/16 10:38 10:46 14:42 14:53 Temp 98.5 98.4 98.5 98.4 Pulse 94 80 Resp 18 18 B/P 136/88 135/91 Pulse Ox 97 95 96 O2 Delivery Room Air Room Air Room Air Room Air 10/01/16 10/01/16 10/01/16 10/01/16 15:27 19:30 19:50 19:52 Temp 98.0 98.0 Pulse 85 Resp 20 18 B/P 171/102 Pulse Ox 96 98 O2 Delivery Room Air Room Air Room Air 10/01/16 10/02/16 10/02/16 10/02/16 23:30 03:08 04:44 05:14 Temp 97.8 98.4 97.8 98.4 Pulse 97 91 Resp 20 18 18 18 B/P 167/104 142/99 Pulse Ox 94 97 O2 Delivery Room Air Room Air Room Air Room Air 10/02/16 10/02/16 10/02/16 07:00 08:22 09:08 Temp 98.2 98.2 Pulse 91 Resp 22 B/P 192/110 Pulse Ox 97 O2 Delivery Room Air Room Air Intake and Output 10/01/16 10/01/16 10/02/16 15:00 23:00 07:00 Intake Total 0 ml 1400 ml Output Total 750 ml 900 ml 1100 ml Balance -750 ml -900 ml 300 ml ANA ROSA DIEHL III DO Oct 02, 2016 10:41
--- NOTE | 2016-10-02 10:55 | PDOC ---
MARIELLA GONZALEZ NURSE PRACTITIONER PER DIEM 10/02/16 1055: SURGICAL PROGRESS NOTE Subjective hd ng clamped, had a episode of choking/phlegm-they hooked the NG back up, not much residual + flatus no significant abdominal pain Vital Signs Vital Signs Date Time Temp Pulse Resp B/P Pulse Ox O2 Delivery O2 Flow Rate FiO2 10/02/16 09:08 Room Air 10/02/16 07:00 98.2 91 22 192/110 97 98.2 I&O Intake and Output 10/02/16 07:00 Intake Total 1400 ml Output Total 2750 ml Balance -1350 ml Intake Oral 0 ml IV Total 700 ml Other 700 ml Output Urine Total 2350 ml Gastric Drainage Total 300 ml Drainage Total 100 ml General: Alert, Oriented X3, Cooperative, No acute distress Abdomen: Soft, No tenderness Labs Laboratory Tests Test 10/01/16 01:30 10/01/16 04:35 10/02/16 05:35 10/02/16 05:45 Gastric Fluid Occult Blood Positive (NEG) White Blood Count 10.2x10^3/uL (4.0-11.0) 10.9x10^3/uL (4.0-11.0) Red Blood Count 5.48x10^6/uL (4.30-5.70) 5.46x10^6/uL (4.30-5.70) Hemoglobin 15.8g/dL (13.0-17.5) 15.9g/dL (13.0-17.5) Hematocrit 48.1% (39.0-53.0) 47.0% (39.0-53.0) Mean Corpuscular Volume 88fL (79-100) 86fL (79-100) Mean Corpuscular Hemoglobin 29pg (25-35) 29pg (25-35) Mean Corpuscular Hemoglobin Concent 33g/dL (31-37) 34g/dL (31-37) Red Cell Distribution Width 15.5% (11.5-14.5) 15.3% (11.5-14.5) Platelet Count 156x10^3/uL (140-400) 164x10^3/uL (140-400) Neutrophils (%) (Auto) 69% (31-73) Lymphocytes (%) (Auto) 18% (24-48) Monocytes (%) (Auto) 10% (0-9) Eosinophils (%) (Auto) 1% (0-3) Basophils (%) (Auto) 1% (0-3) Neutrophils # (Auto) 7.5x10^3uL (1.8-7.7) Lymphocytes # (Auto) 2.0x10^3/uL (1.0-4.8) Monocytes # (Auto) 1.1x10^3/uL (0.0-1.1) Eosinophils # (Auto) 0.1x10^3/uL (0.0-0.7) Basophils # (Auto) 0.1x10^3/uL (0.0-0.2) Sodium Level 137mmol/L (136-145) Potassium Level 3.8mmol/L (3.5-5.1) Chloride Level 102mmol/L (98-107) Carbon Dioxide Level 22mmol/L (21-32) Anion Gap 13 (6-14) Blood Urea Nitrogen 11mg/dL (8-26) Creatinine 0.8mg/dL (0.7-1.3) Estimated GFR (Cockcroft-Gault) 118.1 BUN/Creatinine Ratio 14 (6-20) Glucose Level 88mg/dL (70-99) Calcium Level 8.7mg/dL (8.5-10.1) Magnesium Level 1.7mg/dL (1.8-2.4) Total Bilirubin 0.9mg/dL (0.2-1.0) Aspartate Amino Transf (AST/SGOT) 34U/L (15-37) Alanine Aminotransferase (ALT/SGPT) 31U/L (16-63) Alkaline Phosphatase 85U/L (46-116) Total Protein 8.3g/dL (6.4-8.2) Albumin 3.6g/dL (3.4-5.0) Albumin/Globulin Ratio 0.8 (1.0-1.7) Laboratory Tests Test 10/02/16 05:35 10/02/16 05:45 White Blood Count 10.9x10^3/uL (4.0-11.0) Red Blood Count 5.46x10^6/uL (4.30-5.70) Hemoglobin 15.9g/dL (13.0-17.5) Hematocrit 47.0% (39.0-53.0) Mean Corpuscular Volume 86fL (79-100) Mean Corpuscular Hemoglobin 29pg (25-35) Mean Corpuscular Hemoglobin Concent 34g/dL (31-37) Red Cell Distribution Width 15.3% (11.5-14.5) Platelet Count 164x10^3/uL (140-400) Neutrophils (%) (Auto) 69% (31-73) Lymphocytes (%) (Auto) 18% (24-48) Monocytes (%) (Auto) 10% (0-9) Eosinophils (%) (Auto) 1% (0-3) Basophils (%) (Auto) 1% (0-3) Neutrophils # (Auto) 7.5x10^3uL (1.8-7.7) Lymphocytes # (Auto) 2.0x10^3/uL (1.0-4.8) Monocytes # (Auto) 1.1x10^3/uL (0.0-1.1) Eosinophils # (Auto) 0.1x10^3/uL (0.0-0.7) Basophils # (Auto) 0.1x10^3/uL (0.0-0.2) Sodium Level 137mmol/L (136-145) Potassium Level 3.8mmol/L (3.5-5.1) Chloride Level 102mmol/L (98-107) Carbon Dioxide Level 22mmol/L (21-32) Anion Gap 13 (6-14) Blood Urea Nitrogen 11mg/dL (8-26) Creatinine 0.8mg/dL (0.7-1.3) Estimated GFR (Cockcroft-Gault) 118.1 BUN/Creatinine Ratio 14 (6-20) Glucose Level 88mg/dL (70-99) Calcium Level 8.7mg/dL (8.5-10.1) Magnesium Level 1.7mg/dL (1.8-2.4) Total Bilirubin 0.9mg/dL (0.2-1.0) Aspartate Amino Transf (AST/SGOT) 34U/L (15-37) Alanine Aminotransferase (ALT/SGPT) 31U/L (16-63) Alkaline Phosphatase 85U/L (46-116) Total Protein 8.3g/dL (6.4-8.2) Albumin 3.6g/dL (3.4-5.0) Albumin/Globulin Ratio 0.8 (1.0-1.7) Problem List sbo vs ileus clamp NG again x 4 hrs, check residual will repeat films--if low residual and films improving--dc NG and start clears, if appears ongoing obstruction will need SBFT Problems: KAVEH KILPATRICK MD 10/02/16 1358: SURGICAL PROGRESS NOTE Assessment/Plan Agree with above Problems: MARIELLA GONZALEZ APRN Oct 02, 2016 10:55 KAVEH KILPATRICK MD Oct 02, 2016 13:58
[2016-10-02 11:00] VITALS: BP 159/98
--- NOTE | 2016-10-02 13:52 | RAD ---
Acute abdomen series with chest, 3 views, 10/02/2016: History: Small bowel obstruction Comparison is made to yesterday's study. An NG tube remains in place extending into the fundus of the stomach. There is mild persistent gaseous distention of several small bowel loops in the central abdomen with associated air-fluid levels. There is a moderate amount of gas in the colon without significant colonic distention. No free air is seen in the abdomen. There is no evidence of organomegaly. The heart size is normal. No pulmonary infiltrates are seen. There is no evidence of pleural fluid. IMPRESSION: 1. The NG tube is in satisfactory position. 2. Persistent mild gaseous distention of small bowel loops suggesting ongoing partial small bowel obstruction.
[2016-10-02 15:00] VITALS: BP 141/89
[2016-10-02 19:00] VITALS: BP 165/97
[2016-10-02 23:00] VITALS: BP 166/100
[2016-10-03] MEDS: MORPHINE SULFATE 2 MG/ML DISP.SYRIN. IV PRN ×3 (00:35→07:59)
[2016-10-03 03:00] VITALS: BP 161/91
[2016-10-03 05:02] LABS: BASO % 0 % (0-3); EOS % 1 % (0-3); HEMATOCRIT 47.4 % (39.0-53.0); HEMOGLOBIN 15.5 g/dL (13.0-17.5); LYMPH # 1.8 x10^3/uL (1.0-4.8); LYMPH % 14 % (24-48); MEAN CORPUSCULAR HEMOGLOBIN 29 pg (25-35); MEAN CORPUSCULAR HGB CONC 33 g/dL (31-37); MEAN CORPUSCULAR VOLUME 88 fL (79-100); MONO % 11 % (0-9); NEUT % 74 % (31-73); PLATELET COUNT 158 x10^3/uL (140-400); RED BLOOD COUNT 5.41 x10^6/uL (4.30-5.70); RED CELL DISTRIBUTION WIDTH 15.1 % (11.5-14.5); WHITE BLOOD COUNT 12.5 x10^3/uL (4.0-11.0)
[2016-10-03 05:29] LABS: CALCIUM 9.1 mg/dL (8.5-10.1); CREATININE 0.9 mg/dL (0.7-1.3); GFR 103.1; POTASSIUM 3.6 mmol/L (3.5-5.1)
[2016-10-03 07:00] VITALS: BP 182/97
[2016-10-03] MEDS ORDERED: IOHEXOL 350 MG/ML 100ML VIAL. PO ONE (07:15)
[2016-10-03] MEDS ORDERED: CONTRAST GIVEN MC PRN (07:15)
[2016-10-03] MEDS: IV NORMAL SALINE 1000ML BAG 1,000 ML IV SCH ×2 (08:00→20:35)
[2016-10-03] MEDS ORDERED: PANTOPRAZOLE IV PUSH 40 MG VIAL. IVP SCH (09:00)
[2016-10-03 11:44] VITALS: BP 156/99
--- NOTE | 2016-10-03 11:47 | PDOC ---
PROGRESS NOTES Chief Complaint Chief Complaint CC: Abd pain 1. Small bowel obstruction 2. 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 HTN 4. Low back pain 5. Osteoarthritis 6. Obesity, BMI 32 7. GERD 8. H/O diverticulitis History of Present Illness History of Present Illness Pt in wheelchair at radiology Just finished small bowel follow through NG tube is in place Extensive abd scar tissue from previous surgery VSS DW RN Vitals Vitals Vital Signs Date Time Temp Pulse Resp B/P Pulse Ox O2 Delivery O2 Flow Rate FiO2 10/03/16 07:59 Room Air 10/03/16 07:00 98.1 92 20 182/97 96 98.1 Physical Exam General: Alert, Oriented X3, Cooperative, No acute distress Heart: Regular rate, No murmurs Lungs: Clear, Other (No wheezing) Abdomen: Soft, No tenderness, Other (Extensive vertical midline scar tissue on abd from previous surgery) Extremities: No clubbing, No cyanosis Skin: No rashes, No breakdown Labs LABS Laboratory Tests Test 10/03/16 04:40 White Blood Count 12.5x10^3/uL (4.0-11.0) Red Blood Count 5.41x10^6/uL (4.30-5.70) Hemoglobin 15.5g/dL (13.0-17.5) Hematocrit 47.4% (39.0-53.0) Mean Corpuscular Volume 88fL (79-100) Mean Corpuscular Hemoglobin 29pg (25-35) Mean Corpuscular Hemoglobin Concent 33g/dL (31-37) Red Cell Distribution Width 15.1% (11.5-14.5) Platelet Count 158x10^3/uL (140-400) Neutrophils (%) (Auto) 74% (31-73) Lymphocytes (%) (Auto) 14% (24-48) Monocytes (%) (Auto) 11% (0-9) Eosinophils (%) (Auto) 1% (0-3) Basophils (%) (Auto) 0% (0-3) Neutrophils # (Auto) 9.2x10^3uL (1.8-7.7) Lymphocytes # (Auto) 1.8x10^3/uL (1.0-4.8) Monocytes # (Auto) 1.4x10^3/uL (0.0-1.1) Eosinophils # (Auto) 0.1x10^3/uL (0.0-0.7) Basophils # (Auto) 0.0x10^3/uL (0.0-0.2) Sodium Level 135mmol/L (136-145) Potassium Level 3.6mmol/L (3.5-5.1) Chloride Level 101mmol/L (98-107) Carbon Dioxide Level 22mmol/L (21-32) Anion Gap 12 (6-14) Blood Urea Nitrogen 11mg/dL (8-26) Creatinine 0.9mg/dL (0.7-1.3) Estimated GFR (Cockcroft-Gault) 103.1 Glucose Level 111mg/dL (70-99) Calcium Level 9.1mg/dL (8.5-10.1) Review of Systems Review of Systems Complains of coughing up phlegm Complains of fatigue Assessment and Plan Assessmemt and Plan Assessment: CC: Abd pain 1. Small bowel obstruction 2. 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 HTN 4. Low back pain 5. Osteoarthritis 6. Obesity, BMI 32 7. GERD 8. H/O diverticulitis Plan: Awaiting results from small bowel follow through Gen Surgery and GI are following - appreciate subspecialty input Leave NG in place for now Recheck labs PTOT Problems: Comment Review of Relevant I have reviewed the following items kirill (where applicable) has been applied. Labs Laboratory Tests Test 10/02/16 05:35 10/02/16 05:45 10/03/16 04:40 White Blood Count 10.9x10^3/uL (4.0-11.0) 12.5x10^3/uL (4.0-11.0) Red Blood Count 5.46x10^6/uL (4.30-5.70) 5.41x10^6/uL (4.30-5.70) Hemoglobin 15.9g/dL (13.0-17.5) 15.5g/dL (13.0-17.5) Hematocrit 47.0% (39.0-53.0) 47.4% (39.0-53.0) Mean Corpuscular Volume 86fL (79-100) 88fL (79-100) Mean Corpuscular Hemoglobin 29pg (25-35) 29pg (25-35) Mean Corpuscular Hemoglobin Concent 34g/dL (31-37) 33g/dL (31-37) Red Cell Distribution Width 15.3% (11.5-14.5) 15.1% (11.5-14.5) Platelet Count 164x10^3/uL (140-400) 158x10^3/uL (140-400) Neutrophils (%) (Auto) 69% (31-73) 74% (31-73) Lymphocytes (%) (Auto) 18% (24-48) 14% (24-48) Monocytes (%) (Auto) 10% (0-9) 11% (0-9) Eosinophils (%) (Auto) 1% (0-3) 1% (0-3) Basophils (%) (Auto) 1% (0-3) 0% (0-3) Neutrophils # (Auto) 7.5x10^3uL (1.8-7.7) 9.2x10^3uL (1.8-7.7) Lymphocytes # (Auto) 2.0x10^3/uL (1.0-4.8) 1.8x10^3/uL (1.0-4.8) Monocytes # (Auto) 1.1x10^3/uL (0.0-1.1) 1.4x10^3/uL (0.0-1.1) Eosinophils # (Auto) 0.1x10^3/uL (0.0-0.7) 0.1x10^3/uL (0.0-0.7) Basophils # (Auto) 0.1x10^3/uL (0.0-0.2) 0.0x10^3/uL (0.0-0.2) Sodium Level 137mmol/L (136-145) 135mmol/L (136-145) Potassium Level 3.8mmol/L (3.5-5.1) 3.6mmol/L (3.5-5.1) Chloride Level 102mmol/L (98-107) 101mmol/L (98-107) Carbon Dioxide Level 22mmol/L (21-32) 22mmol/L (21-32) Anion Gap 13 (6-14) 12 (6-14) Blood Urea Nitrogen 11mg/dL (8-26) 11mg/dL (8-26) Creatinine 0.8mg/dL (0.7-1.3) 0.9mg/dL (0.7-1.3) Estimated GFR (Cockcroft-Gault) 118.1 103.1 BUN/Creatinine Ratio 14 (6-20) Glucose Level 88mg/dL (70-99) 111mg/dL (70-99) Calcium Level 8.7mg/dL (8.5-10.1) 9.1mg/dL (8.5-10.1) Magnesium Level 1.7mg/dL (1.8-2.4) Total Bilirubin 0.9mg/dL (0.2-1.0) Aspartate Amino Transf (AST/SGOT) 34U/L (15-37) Alanine Aminotransferase (ALT/SGPT) 31U/L (16-63) Alkaline Phosphatase 85U/L (46-116) Total Protein 8.3g/dL (6.4-8.2) Albumin 3.6g/dL (3.4-5.0) Albumin/Globulin Ratio 0.8 (1.0-1.7) Laboratory Tests Test 10/03/16 04:40 White Blood Count 12.5x10^3/uL (4.0-11.0) Red Blood Count 5.41x10^6/uL (4.30-5.70) Hemoglobin 15.5g/dL (13.0-17.5) Hematocrit 47.4% (39.0-53.0) Mean Corpuscular Volume 88fL (79-100) Mean Corpuscular Hemoglobin 29pg (25-35) Mean Corpuscular Hemoglobin Concent 33g/dL (31-37) Red Cell Distribution Width 15.1% (11.5-14.5) Platelet Count 158x10^3/uL (140-400) Neutrophils (%) (Auto) 74% (31-73) Lymphocytes (%) (Auto) 14% (24-48) Monocytes (%) (Auto) 11% (0-9) Eosinophils (%) (Auto) 1% (0-3) Basophils (%) (Auto) 0% (0-3) Neutrophils # (Auto) 9.2x10^3uL (1.8-7.7) Lymphocytes # (Auto) 1.8x10^3/uL (1.0-4.8) Monocytes # (Auto) 1.4x10^3/uL (0.0-1.1) Eosinophils # (Auto) 0.1x10^3/uL (0.0-0.7) Basophils # (Auto) 0.0x10^3/uL (0.0-0.2) Sodium Level 135mmol/L (136-145) Potassium Level 3.6mmol/L (3.5-5.1) Chloride Level 101mmol/L (98-107) Carbon Dioxide Level 22mmol/L (21-32) Anion Gap 12 (6-14) Blood Urea Nitrogen 11mg/dL (8-26) Creatinine 0.9mg/dL (0.7-1.3) Estimated GFR (Cockcroft-Gault) 103.1 Glucose Level 111mg/dL (70-99) Calcium Level 9.1mg/dL (8.5-10.1) Medications Current Medications Morphine Sulfate 4 mg PRN Q2HR PRN IV MODERATE PAIN Last administered on 04:44; Start 09/30/16 at 06:30 Hydromorphone HCl (Dilaudid) 1 mg PRN Q4HRS PRN IV SEVERE PAIN; Start 09/30/16 at 06:30 Ondansetron HCl (Zofran) 4 mg PRN Q8HRS PRN IV NAUSEA/VOMITING; Start 09/30/16 at 06:30 Diphenhydramine HCl 25 mg 25 mg PRN Q6HRS PRN IVP ITCHING; Start 09/30/16 at 06 :30 Sodium Chloride (Iv Sodium Chloride 0.9% 1000ml Bag) 1,000 ml @ 100 mls/hr Q10H IV Last administered on 10/03/16 08:00; Start 09/30/16 at 06:30 Throat Lozenges (Cepacol Sore Throat Lozenge) 1 kristen PRN Q2HRS PRN PO SORE THROAT Last administered on 09/30/16 18:44; Start 09/30/16 at 10:15 Throat Lozenges (Chloraseptic) 1 spray PRN Q2HR PRN PO SORE THROAT Last administered on 10/01/16 02:47; Start 09/30/16 at 10:15 Acetaminophen (Tylenol) 650 mg PRN Q4HRS PRN MO MILD PAIN / TEMP; Start at 22:00 Ketorolac Tromethamine (Toradol) 15 mg PRN DAILY PRN IV MODERATE PAIN Last administered on 10/01/16 02:45; Start 10/01/16 at 02:30; Stop 10/06/16 at 02:29 Pantoprazole Sodium (Protonix Vial) 40 mg BID IVP Last administered on 09:08; Start 10/01/16 at 02:30; Stop 10/02/16 at 10:00; Status DC Morphine Sulfate 2 mg PRN Q2HR PRN IV PAIN Last administered on 10/03/16 07:59 ; Start 10/01/16 at 15:30 Pantoprazole Sodium (Protonix Vial) 40 mg DAILY IVP Last administered on 08:00; Start 10/03/16 at 09:00 Iohexol (Omnipaque 350 Mg/ml) 400 ml 1X ONCE PO ; Start 10/03/16 at 07:15; Stop 10/03/16 at 07:16; Status DC Info (Do NOT chart on this entry -- for MONITORING) 1 each PRN DAILY PRN MC SEE COMMENTS; Start 10/03/16 at 07:15; Stop 10/05/16 at 07:14 Vitals/I & O Vital Sign - Last 24 Hours 10/02/16 10/02/16 10/02/16 10/02/16 12:07 15:00 19:00 19:46 Temp 98.4 98.6 98.4 98.6 Pulse 80 91 Resp 18 18 18 B/P 141/89 165/97 Pulse Ox 96 95 O2 Delivery Room Air Room Air Room Air Room Air 10/02/16 10/02/16 10/03/16 10/03/16 20:00 23:00 00:35 03:00 Temp 98.7 98.4 98.7 98.4 Pulse 90 91 Resp 18 18 18 B/P 166/100 161/91 Pulse Ox 95 98 O2 Delivery Room Air Room Air Room Air Room Air 10/03/16 10/03/16 10/03/16 10/03/16 04:20 04:50 07:00 07:15 Temp 98.1 98.1 Pulse 92 Resp 18 18 20 B/P 182/97 Pulse Ox 96 O2 Delivery Room Air Room Air Room Air Room Air 10/03/16 07:59 O2 Delivery Room Air Intake and Output 10/02/16 10/02/16 10/03/16 15:00 23:00 07:00 Intake Total 0 ml 1700 ml Output Total 1175 ml 600 ml Balance -1175 ml 1100 ml ANA ROSA DIEHL III DO Oct 03, 2016 11:47
--- NOTE | 2016-10-03 11:50 | RAD ---
EXAM: Water soluble small bowel follow-through. HISTORY: Small bowel obstruction. COMPARISON: 10/02/2016. FINDINGS: [employer] image was obtained. Mildly dilated small bowel loops persist in the mid abdomen. There is gas distally. Water-soluble contrast was administered through the nasogastric tube and followed in its course through the small bowel and colon with plain radiographs. Fluoroscopic images were not obtained. There is mild distention of the small bowel. Contrast appears to reach the right colon at 2 hours. No transition point is identified below. Stool throughout the colon suggests constipation. IMPRESSION: 1. Mild small bowel distention. Transit time is not clearly prolonged at approximately 2 hours. There is a component of constipation. Correlate clinically for ileus.
--- NOTE | 2016-10-03 12:31 | PDOC ---
MARIELLA GONZALEZ DIRECTOR [employer] 10/03/16 1231: SURGICAL PROGRESS NOTE Subjective no nausea or emesis + flatus no bm yet Vital Signs Vital Signs Date Time Temp Pulse Resp B/P Pulse Ox O2 Delivery O2 Flow Rate FiO2 10/03/16 11:44 97.8 100 20 156/99 96 Room Air 97.8 I&O Intake and Output 10/03/16 07:00 Intake Total 1700 ml Output Total 1775 ml Balance -75 ml Intake Oral 0 ml IV Total 500 ml Other 1200 ml Output Urine Total 1775 ml # Voids 1 General: Alert, Oriented X3, Cooperative, No acute distress Abdomen: Soft, No tenderness Labs Laboratory Tests Test 10/02/16 05:35 10/02/16 05:45 10/03/16 04:40 White Blood Count 10.9x10^3/uL (4.0-11.0) 12.5x10^3/uL (4.0-11.0) Red Blood Count 5.46x10^6/uL (4.30-5.70) 5.41x10^6/uL (4.30-5.70) Hemoglobin 15.9g/dL (13.0-17.5) 15.5g/dL (13.0-17.5) Hematocrit 47.0% (39.0-53.0) 47.4% (39.0-53.0) Mean Corpuscular Volume 86fL (79-100) 88fL (79-100) Mean Corpuscular Hemoglobin 29pg (25-35) 29pg (25-35) Mean Corpuscular Hemoglobin Concent 34g/dL (31-37) 33g/dL (31-37) Red Cell Distribution Width 15.3% (11.5-14.5) 15.1% (11.5-14.5) Platelet Count 164x10^3/uL (140-400) 158x10^3/uL (140-400) Neutrophils (%) (Auto) 69% (31-73) 74% (31-73) Lymphocytes (%) (Auto) 18% (24-48) 14% (24-48) Monocytes (%) (Auto) 10% (0-9) 11% (0-9) Eosinophils (%) (Auto) 1% (0-3) 1% (0-3) Basophils (%) (Auto) 1% (0-3) 0% (0-3) Neutrophils # (Auto) 7.5x10^3uL (1.8-7.7) 9.2x10^3uL (1.8-7.7) Lymphocytes # (Auto) 2.0x10^3/uL (1.0-4.8) 1.8x10^3/uL (1.0-4.8) Monocytes # (Auto) 1.1x10^3/uL (0.0-1.1) 1.4x10^3/uL (0.0-1.1) Eosinophils # (Auto) 0.1x10^3/uL (0.0-0.7) 0.1x10^3/uL (0.0-0.7) Basophils # (Auto) 0.1x10^3/uL (0.0-0.2) 0.0x10^3/uL (0.0-0.2) Sodium Level 137mmol/L (136-145) 135mmol/L (136-145) Potassium Level 3.8mmol/L (3.5-5.1) 3.6mmol/L (3.5-5.1) Chloride Level 102mmol/L (98-107) 101mmol/L (98-107) Carbon Dioxide Level 22mmol/L (21-32) 22mmol/L (21-32) Anion Gap 13 (6-14) 12 (6-14) Blood Urea Nitrogen 11mg/dL (8-26) 11mg/dL (8-26) Creatinine 0.8mg/dL (0.7-1.3) 0.9mg/dL (0.7-1.3) Estimated GFR (Cockcroft-Gault) 118.1 103.1 BUN/Creatinine Ratio 14 (6-20) Glucose Level 88mg/dL (70-99) 111mg/dL (70-99) Calcium Level 8.7mg/dL (8.5-10.1) 9.1mg/dL (8.5-10.1) Magnesium Level 1.7mg/dL (1.8-2.4) Total Bilirubin 0.9mg/dL (0.2-1.0) Aspartate Amino Transf (AST/SGOT) 34U/L (15-37) Alanine Aminotransferase (ALT/SGPT) 31U/L (16-63) Alkaline Phosphatase 85U/L (46-116) Total Protein 8.3g/dL (6.4-8.2) Albumin 3.6g/dL (3.4-5.0) Albumin/Globulin Ratio 0.8 (1.0-1.7) Laboratory Tests Test 10/03/16 04:40 White Blood Count 12.5x10^3/uL (4.0-11.0) Red Blood Count 5.41x10^6/uL (4.30-5.70) Hemoglobin 15.5g/dL (13.0-17.5) Hematocrit 47.4% (39.0-53.0) Mean Corpuscular Volume 88fL (79-100) Mean Corpuscular Hemoglobin 29pg (25-35) Mean Corpuscular Hemoglobin Concent 33g/dL (31-37) Red Cell Distribution Width 15.1% (11.5-14.5) Platelet Count 158x10^3/uL (140-400) Neutrophils (%) (Auto) 74% (31-73) Lymphocytes (%) (Auto) 14% (24-48) Monocytes (%) (Auto) 11% (0-9) Eosinophils (%) (Auto) 1% (0-3) Basophils (%) (Auto) 0% (0-3) Neutrophils # (Auto) 9.2x10^3uL (1.8-7.7) Lymphocytes # (Auto) 1.8x10^3/uL (1.0-4.8) Monocytes # (Auto) 1.4x10^3/uL (0.0-1.1) Eosinophils # (Auto) 0.1x10^3/uL (0.0-0.7) Basophils # (Auto) 0.0x10^3/uL (0.0-0.2) Sodium Level 135mmol/L (136-145) Potassium Level 3.6mmol/L (3.5-5.1) Chloride Level 101mmol/L (98-107) Carbon Dioxide Level 22mmol/L (21-32) Anion Gap 12 (6-14) Blood Urea Nitrogen 11mg/dL (8-26) Creatinine 0.9mg/dL (0.7-1.3) Estimated GFR (Cockcroft-Gault) 103.1 Glucose Level 111mg/dL (70-99) Calcium Level 9.1mg/dL (8.5-10.1) Problem List ileus, constipation SBFT without obstruction DC NG, start clears Problems: KAVEH KILPATRICK MD 10/03/16 1233: SURGICAL PROGRESS NOTE Assessment/Plan Agree with above, start liquids Problems: MARIELLA GONZALEZ APRN Oct 03, 2016 12:31 KAVEH KILPATRICK MD Oct 03, 2016 12:33
--- NOTE | 2016-10-03 13:08 | PDOC ---
Subjective: Subjective: Doing okay, says just had a BM, no pain, no n/v, wants to drink. Objective: Objective: NG clamped. Vital Signs: Vital Signs Date Time Temp Pulse Resp B/P Pulse Ox O2 Delivery O2 Flow Rate FiO2 10/03/16 11:44 97.8 100 20 156/99 96 Room Air 97.8 Labs: Laboratory Tests Test 10/03/16 04:40 White Blood Count 12.5x10^3/uL Red Blood Count 5.41x10^6/uL Hemoglobin 15.5g/dL Hematocrit 47.4% Mean Corpuscular Volume 88fL Mean Corpuscular Hemoglobin 29pg Mean Corpuscular Hemoglobin Concent 33g/dL Red Cell Distribution Width 15.1% Platelet Count 158x10^3/uL Neutrophils (%) (Auto) 74% Lymphocytes (%) (Auto) 14% Monocytes (%) (Auto) 11% Eosinophils (%) (Auto) 1% Basophils (%) (Auto) 0% Neutrophils # (Auto) 9.2x10^3uL Lymphocytes # (Auto) 1.8x10^3/uL Monocytes # (Auto) 1.4x10^3/uL Eosinophils # (Auto) 0.1x10^3/uL Basophils # (Auto) 0.0x10^3/uL Sodium Level 135mmol/L Potassium Level 3.6mmol/L Chloride Level 101mmol/L Carbon Dioxide Level 22mmol/L Anion Gap 12 Blood Urea Nitrogen 11mg/dL Creatinine 0.9mg/dL Estimated GFR (Cockcroft-Gault) 103.1 Glucose Level 111mg/dL Calcium Level 9.1mg/dL Imaging: SBS IMPRESSION: 1. Mild small bowel distention. Transit time is not clearly prolonged at approximately 2 hours. There is a component of constipation. Correlate clinically for ileus. PE: GEN: NAD, NG clamped LUNGS: CTAB HEART: RRR ABD: BS quiet, non-tender, scars NEURO/PSYCH: A & O 3 A/P: Ileus/partial SBO --symptoms and imaging improved but NG to suction again this morning, pt reported choking on mucous H/o diverticulitis s/p bowel resection GERD -occasional, no previous EGD -on IV PPI here w/ gastric occult blood + -- Note surgery plans to clamp NG, start clears. Continue PPI (will change to PO) and add Miralax. PRINCE ZAMARRIPA Oct 03, 2016 13:08
[2016-10-03] MEDS: POLYETHYLENE GLYCOL 3350 17 GM PACKET. PO SCH (13:25)
[2016-10-03 14:39] VITALS: BP 156/84
[2016-10-03 19:45] VITALS: BP 157/92
[2016-10-03] MEDS: KETOROLAC 15 MG/ML VIAL. IV PRN (20:31)
[2016-10-03 23:33] VITALS: BP 146/84
[2016-10-04] MEDS: MORPHINE SULFATE 2 MG/ML DISP.SYRIN. IV PRN ×2 (00:05→21:57)
[2016-10-04 03:40] VITALS: BP 145/82
[2016-10-04 04:29] LABS: BASO % 0 % (0-3); EOS % 1 % (0-3); HEMATOCRIT 45.2 % (39.0-53.0); HEMOGLOBIN 15.1 g/dL (13.0-17.5); LYMPH # 2.7 x10^3/uL (1.0-4.8); LYMPH % 29 % (24-48); MEAN CORPUSCULAR HEMOGLOBIN 29 pg (25-35); MEAN CORPUSCULAR HGB CONC 33 g/dL (31-37); MEAN CORPUSCULAR VOLUME 87 fL (79-100); MONO % 13 % (0-9); NEUT % 57 % (31-73); PLATELET COUNT 138 x10^3/uL (140-400); RED BLOOD COUNT 5.18 x10^6/uL (4.30-5.70); RED CELL DISTRIBUTION WIDTH 15.3 % (11.5-14.5); WHITE BLOOD COUNT 9.6 x10^3/uL (4.0-11.0)
[2016-10-04 04:35] LABS: CALCIUM 8.7 mg/dL (8.5-10.1); CREATININE 0.7 mg/dL (0.7-1.3); GFR 137.8; POTASSIUM 3.5 mmol/L (3.5-5.1)
[2016-10-04 07:00] VITALS: BP 151/88
--- NOTE | 2016-10-04 08:40 | PDOC ---
MARIELLA GONZALEZ RETAIL PLANNING MANAGER 10/04/16 0840: SURGICAL PROGRESS NOTE Subjective tolerating clears no n/v having stools no pain Vital Signs Vital Signs Date Time Temp Pulse Resp B/P Pulse Ox O2 Delivery O2 Flow Rate FiO2 10/04/16 07:00 98.0 75 20 151/88 98 Room Air 98.0 I&O Intake and Output 10/04/16 07:00 Intake Total 957 ml Output Total 400 ml Balance 557 ml Intake Oral 300 ml IV Total 657 ml Output Urine Total 400 ml # Voids 1 # Bowel Movements 1 General: Alert, Oriented X3, Cooperative, No acute distress Abdomen: Soft, No tenderness Labs Laboratory Tests Test 10/03/16 04:40 10/04/16 04:05 White Blood Count 12.5x10^3/uL (4.0-11.0) 9.6x10^3/uL (4.0-11.0) Red Blood Count 5.41x10^6/uL (4.30-5.70) 5.18x10^6/uL (4.30-5.70) Hemoglobin 15.5g/dL (13.0-17.5) 15.1g/dL (13.0-17.5) Hematocrit 47.4% (39.0-53.0) 45.2% (39.0-53.0) Mean Corpuscular Volume 88fL (79-100) 87fL (79-100) Mean Corpuscular Hemoglobin 29pg (25-35) 29pg (25-35) Mean Corpuscular Hemoglobin Concent 33g/dL (31-37) 33g/dL (31-37) Red Cell Distribution Width 15.1% (11.5-14.5) 15.3% (11.5-14.5) Platelet Count 158x10^3/uL (140-400) 138x10^3/uL (140-400) Neutrophils (%) (Auto) 74% (31-73) 57% (31-73) Lymphocytes (%) (Auto) 14% (24-48) 29% (24-48) Monocytes (%) (Auto) 11% (0-9) 13% (0-9) Eosinophils (%) (Auto) 1% (0-3) 1% (0-3) Basophils (%) (Auto) 0% (0-3) 0% (0-3) Neutrophils # (Auto) 9.2x10^3uL (1.8-7.7) 5.5x10^3uL (1.8-7.7) Lymphocytes # (Auto) 1.8x10^3/uL (1.0-4.8) 2.7x10^3/uL (1.0-4.8) Monocytes # (Auto) 1.4x10^3/uL (0.0-1.1) 1.2x10^3/uL (0.0-1.1) Eosinophils # (Auto) 0.1x10^3/uL (0.0-0.7) 0.1x10^3/uL (0.0-0.7) Basophils # (Auto) 0.0x10^3/uL (0.0-0.2) 0.0x10^3/uL (0.0-0.2) Sodium Level 135mmol/L (136-145) 137mmol/L (136-145) Potassium Level 3.6mmol/L (3.5-5.1) 3.5mmol/L (3.5-5.1) Chloride Level 101mmol/L (98-107) 103mmol/L (98-107) Carbon Dioxide Level 22mmol/L (21-32) 24mmol/L (21-32) Anion Gap 12 (6-14) 10 (6-14) Blood Urea Nitrogen 11mg/dL (8-26) 9mg/dL (8-26) Creatinine 0.9mg/dL (0.7-1.3) 0.7mg/dL (0.7-1.3) Estimated GFR (Cockcroft-Gault) 103.1 137.8 Glucose Level 111mg/dL (70-99) 96mg/dL (70-99) Calcium Level 9.1mg/dL (8.5-10.1) 8.7mg/dL (8.5-10.1) Laboratory Tests Test 10/04/16 04:05 White Blood Count 9.6x10^3/uL (4.0-11.0) Red Blood Count 5.18x10^6/uL (4.30-5.70) Hemoglobin 15.1g/dL (13.0-17.5) Hematocrit 45.2% (39.0-53.0) Mean Corpuscular Volume 87fL (79-100) Mean Corpuscular Hemoglobin 29pg (25-35) Mean Corpuscular Hemoglobin Concent 33g/dL (31-37) Red Cell Distribution Width 15.3% (11.5-14.5) Platelet Count 138x10^3/uL (140-400) Neutrophils (%) (Auto) 57% (31-73) Lymphocytes (%) (Auto) 29% (24-48) Monocytes (%) (Auto) 13% (0-9) Eosinophils (%) (Auto) 1% (0-3) Basophils (%) (Auto) 0% (0-3) Neutrophils # (Auto) 5.5x10^3uL (1.8-7.7) Lymphocytes # (Auto) 2.7x10^3/uL (1.0-4.8) Monocytes # (Auto) 1.2x10^3/uL (0.0-1.1) Eosinophils # (Auto) 0.1x10^3/uL (0.0-0.7) Basophils # (Auto) 0.0x10^3/uL (0.0-0.2) Sodium Level 137mmol/L (136-145) Potassium Level 3.5mmol/L (3.5-5.1) Chloride Level 103mmol/L (98-107) Carbon Dioxide Level 24mmol/L (21-32) Anion Gap 10 (6-14) Blood Urea Nitrogen 9mg/dL (8-26) Creatinine 0.7mg/dL (0.7-1.3) Estimated GFR (Cockcroft-Gault) 137.8 Glucose Level 96mg/dL (70-99) Calcium Level 8.7mg/dL (8.5-10.1) Problem List ileus advance to soft diet if tolerating can dc home Problems: BULMARO CHOW MD 10/04/16 0945: SURGICAL PROGRESS NOTE Assessment/Plan Pt seen and examined. Agree with Ms. Gonzalez's note Pt feels better abd soft ADAT Problems: MARIELLA GONZALEZ APRN Oct 04, 2016 08:40 BULMARO CHOW MD Oct 04, 2016 09:45
[2016-10-04] MEDS: PANTOPRAZOLE 40 MG TABLET. PO SCH (09:36)
[2016-10-04] MEDS: POLYETHYLENE GLYCOL 3350 17 GM PACKET. PO SCH (09:36)
[2016-10-04] MEDS: IV NORMAL SALINE 1000ML BAG 1,000 ML IV SCH ×2 (09:36→20:30)
[2016-10-04] MEDS: KETOROLAC 15 MG/ML VIAL. IV PRN (09:40)
[2016-10-04 11:00] VITALS: BP 139/88
[2016-10-04 15:00] VITALS: BP 165/92
[2016-10-04 19:00] VITALS: BP 163/92
[2016-10-04 23:00] VITALS: BP 154/80
[2016-10-05] MEDS: MORPHINE SULFATE 2 MG/ML DISP.SYRIN. IV PRN (00:35)
[2016-10-05] MEDS ORDERED: CYCLOBENZAPRINE 10 MG TABLET. PO PRN (01:00)
[2016-10-05] MEDS ORDERED: HYDROCODONE/APAP 5/325MG TABLET. PO PRN (01:00)
[2016-10-05 01:20] VITALS: BP 184/81
[2016-10-05 03:21] VITALS: BP 153/81
[2016-10-05] MEDS: IV NORMAL SALINE 1000ML BAG 1,000 ML IV SCH (06:30)
[2016-10-05] MEDS: PANTOPRAZOLE 40 MG TABLET. PO SCH (06:52)
[2016-10-05 07:00] VITALS: BP 145/90
[2016-10-05] MEDS: POLYETHYLENE GLYCOL 3350 17 GM PACKET. PO SCH (08:43)
--- NOTE | 2016-10-05 08:47 | PDOC ---
MARIELLA GONZALEZ PLANT DIRECTOR 10/05/16 0847: SURGICAL PROGRESS NOTE Subjective tolerating diet bowels working no pain no n/v Vital Signs Vital Signs Date Time Temp Pulse Resp B/P Pulse Ox O2 Delivery O2 Flow Rate FiO2 10/05/16 08:45 16 Room Air 10/05/16 07:00 98.4 74 145/90 98 98.4 I&O Intake and Output 10/05/16 07:00 Output Total 550 ml Balance -550 ml Output Urine Total 550 ml # Voids 4 General: Alert, Oriented X3, Cooperative, No acute distress Abdomen: Normal bowel sounds, Soft, No tenderness, No hepatosplenomegaly, No masses Labs Laboratory Tests Test 10/04/16 04:05 White Blood Count 9.6x10^3/uL (4.0-11.0) Red Blood Count 5.18x10^6/uL (4.30-5.70) Hemoglobin 15.1g/dL (13.0-17.5) Hematocrit 45.2% (39.0-53.0) Mean Corpuscular Volume 87fL (79-100) Mean Corpuscular Hemoglobin 29pg (25-35) Mean Corpuscular Hemoglobin Concent 33g/dL (31-37) Red Cell Distribution Width 15.3% (11.5-14.5) Platelet Count 138x10^3/uL (140-400) Neutrophils (%) (Auto) 57% (31-73) Lymphocytes (%) (Auto) 29% (24-48) Monocytes (%) (Auto) 13% (0-9) Eosinophils (%) (Auto) 1% (0-3) Basophils (%) (Auto) 0% (0-3) Neutrophils # (Auto) 5.5x10^3uL (1.8-7.7) Lymphocytes # (Auto) 2.7x10^3/uL (1.0-4.8) Monocytes # (Auto) 1.2x10^3/uL (0.0-1.1) Eosinophils # (Auto) 0.1x10^3/uL (0.0-0.7) Basophils # (Auto) 0.0x10^3/uL (0.0-0.2) Sodium Level 137mmol/L (136-145) Potassium Level 3.5mmol/L (3.5-5.1) Chloride Level 103mmol/L (98-107) Carbon Dioxide Level 24mmol/L (21-32) Anion Gap 10 (6-14) Blood Urea Nitrogen 9mg/dL (8-26) Creatinine 0.7mg/dL (0.7-1.3) Estimated GFR (Cockcroft-Gault) 137.8 Glucose Level 96mg/dL (70-99) Calcium Level 8.7mg/dL (8.5-10.1) Assessment/Plan ileus ok to dc Problems: BULMARO CHOW MD 10/05/16 1144: SURGICAL PROGRESS NOTE Problem List Pt seen and examined. Agree with Ms. Gonzalez's note Pt feels better, jonelle PO abd soft ADAT OK to d/c Problems: MARIELLA GONZALEZ APRN Oct 05, 2016 08:47 BULMARO CHOW MD Oct 05, 2016 11:44
[2016-10-05 09:00] LABS: BASO # 0.1 x10^3/uL (0.0-0.2); BASO % 1 % (0-3); EOS % 2 % (0-3); HEMATOCRIT 44.7 % (39.0-53.0); HEMOGLOBIN 15.3 g/dL (13.0-17.5); LYMPH # 1.8 x10^3/uL (1.0-4.8); LYMPH % 24 % (24-48); MEAN CORPUSCULAR HEMOGLOBIN 29 pg (25-35); MEAN CORPUSCULAR HGB CONC 34 g/dL (31-37); MEAN CORPUSCULAR VOLUME 85 fL (79-100); MONO % 14 % (0-9); NEUT % 59 % (31-73); PLATELET COUNT 158 x10^3/uL (140-400); RED BLOOD COUNT 5.26 x10^6/uL (4.30-5.70); RED CELL DISTRIBUTION WIDTH 14.8 % (11.5-14.5); WHITE BLOOD COUNT 7.3 x10^3/uL (4.0-11.0)
[2016-10-05 09:11] LABS: CALCIUM 8.8 mg/dL (8.5-10.1); CREATININE 0.7 mg/dL (0.7-1.3); GFR 137.8; POTASSIUM 3.3 mmol/L (3.5-5.1)
[2016-10-05 11:00] VITALS: BP 170/94
--- NOTE | 2016-10-05 12:20 | PDOC ---
PROGRESS NOTES Chief Complaint Chief Complaint CC: Abd pain 1. Ileus 2. 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 HTN 4. Low back pain 5. Osteoarthritis 6. Obesity, BMI 32 7. GERD 8. H/O diverticulitis History of Present Illness History of Present Illness Pt resting in bed with NAD NG tube was removed Will replenish potassium Tolerating diet Probable D/C today if ok with subspecialists VSS OLU RN Vitals Vitals Vital Signs Date Time Temp Pulse Resp B/P Pulse Ox O2 Delivery O2 Flow Rate FiO2 10/05/16 10:00 16 Room Air 10/05/16 07:00 98.4 74 145/90 98 98.4 Physical Exam General: Alert, Oriented X3, Cooperative, No acute distress Heart: Regular rate, No murmurs Lungs: Clear, Other (No wheezing) Abdomen: Normal bowel sounds, Soft, No tenderness, No hepatosplenomegaly, No masses Extremities: No clubbing, No cyanosis Skin: No rashes, No breakdown Labs LABS Laboratory Tests Test 10/05/16 08:33 White Blood Count 7.3x10^3/uL (4.0-11.0) Red Blood Count 5.26x10^6/uL (4.30-5.70) Hemoglobin 15.3g/dL (13.0-17.5) Hematocrit 44.7% (39.0-53.0) Mean Corpuscular Volume 85fL (79-100) Mean Corpuscular Hemoglobin 29pg (25-35) Mean Corpuscular Hemoglobin Concent 34g/dL (31-37) Red Cell Distribution Width 14.8% (11.5-14.5) Platelet Count 158x10^3/uL (140-400) Neutrophils (%) (Auto) 59% (31-73) Lymphocytes (%) (Auto) 24% (24-48) Monocytes (%) (Auto) 14% (0-9) Eosinophils (%) (Auto) 2% (0-3) Basophils (%) (Auto) 1% (0-3) Neutrophils # (Auto) 4.3x10^3uL (1.8-7.7) Lymphocytes # (Auto) 1.8x10^3/uL (1.0-4.8) Monocytes # (Auto) 1.0x10^3/uL (0.0-1.1) Eosinophils # (Auto) 0.2x10^3/uL (0.0-0.7) Basophils # (Auto) 0.1x10^3/uL (0.0-0.2) Sodium Level 138mmol/L (136-145) Potassium Level 3.3mmol/L (3.5-5.1) Chloride Level 101mmol/L (98-107) Carbon Dioxide Level 28mmol/L (21-32) Anion Gap 9 (6-14) Blood Urea Nitrogen 7mg/dL (8-26) Creatinine 0.7mg/dL (0.7-1.3) Estimated GFR (Cockcroft-Gault) 137.8 Glucose Level 103mg/dL (70-99) Calcium Level 8.8mg/dL (8.5-10.1) Review of Systems Review of Systems Complains of weakness Complains of fatigue Assessment and Plan Assessmemt and Plan Problems Medical Problems: (1) SBO (small bowel obstruction) Status: Acute Assessment: CC: Abd pain 1. Ileus 2. 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 HTN 4. Low back pain 5. Osteoarthritis 6. Obesity, BMI 32 7. GERD 8. H/O diverticulitis Plan: Probable D/C today Gen Surgery following - OK to D/C today Will replenish K before D/C Continue home meds PTOT Problems: Comment Review of Relevant I have reviewed the following items kirill (where applicable) has been applied. Labs Laboratory Tests Test 10/04/16 04:05 10/05/16 08:33 White Blood Count 9.6x10^3/uL (4.0-11.0) 7.3x10^3/uL (4.0-11.0) Red Blood Count 5.18x10^6/uL (4.30-5.70) 5.26x10^6/uL (4.30-5.70) Hemoglobin 15.1g/dL (13.0-17.5) 15.3g/dL (13.0-17.5) Hematocrit 45.2% (39.0-53.0) 44.7% (39.0-53.0) Mean Corpuscular Volume 87fL (79-100) 85fL (79-100) Mean Corpuscular Hemoglobin 29pg (25-35) 29pg (25-35) Mean Corpuscular Hemoglobin Concent 33g/dL (31-37) 34g/dL (31-37) Red Cell Distribution Width 15.3% (11.5-14.5) 14.8% (11.5-14.5) Platelet Count 138x10^3/uL (140-400) 158x10^3/uL (140-400) Neutrophils (%) (Auto) 57% (31-73) 59% (31-73) Lymphocytes (%) (Auto) 29% (24-48) 24% (24-48) Monocytes (%) (Auto) 13% (0-9) 14% (0-9) Eosinophils (%) (Auto) 1% (0-3) 2% (0-3) Basophils (%) (Auto) 0% (0-3) 1% (0-3) Neutrophils # (Auto) 5.5x10^3uL (1.8-7.7) 4.3x10^3uL (1.8-7.7) Lymphocytes # (Auto) 2.7x10^3/uL (1.0-4.8) 1.8x10^3/uL (1.0-4.8) Monocytes # (Auto) 1.2x10^3/uL (0.0-1.1) 1.0x10^3/uL (0.0-1.1) Eosinophils # (Auto) 0.1x10^3/uL (0.0-0.7) 0.2x10^3/uL (0.0-0.7) Basophils # (Auto) 0.0x10^3/uL (0.0-0.2) 0.1x10^3/uL (0.0-0.2) Sodium Level 137mmol/L (136-145) 138mmol/L (136-145) Potassium Level 3.5mmol/L (3.5-5.1) 3.3mmol/L (3.5-5.1) Chloride Level 103mmol/L (98-107) 101mmol/L (98-107) Carbon Dioxide Level 24mmol/L (21-32) 28mmol/L (21-32) Anion Gap 10 (6-14) 9 (6-14) Blood Urea Nitrogen 9mg/dL (8-26) 7mg/dL (8-26) Creatinine 0.7mg/dL (0.7-1.3) 0.7mg/dL (0.7-1.3) Estimated GFR (Cockcroft-Gault) 137.8 137.8 Glucose Level 96mg/dL (70-99) 103mg/dL (70-99) Calcium Level 8.7mg/dL (8.5-10.1) 8.8mg/dL (8.5-10.1) Laboratory Tests Test 10/05/16 08:33 White Blood Count 7.3x10^3/uL (4.0-11.0) Red Blood Count 5.26x10^6/uL (4.30-5.70) Hemoglobin 15.3g/dL (13.0-17.5) Hematocrit 44.7% (39.0-53.0) Mean Corpuscular Volume 85fL (79-100) Mean Corpuscular Hemoglobin 29pg (25-35) Mean Corpuscular Hemoglobin Concent 34g/dL (31-37) Red Cell Distribution Width 14.8% (11.5-14.5) Platelet Count 158x10^3/uL (140-400) Neutrophils (%) (Auto) 59% (31-73) Lymphocytes (%) (Auto) 24% (24-48) Monocytes (%) (Auto) 14% (0-9) Eosinophils (%) (Auto) 2% (0-3) Basophils (%) (Auto) 1% (0-3) Neutrophils # (Auto) 4.3x10^3uL (1.8-7.7) Lymphocytes # (Auto) 1.8x10^3/uL (1.0-4.8) Monocytes # (Auto) 1.0x10^3/uL (0.0-1.1) Eosinophils # (Auto) 0.2x10^3/uL (0.0-0.7) Basophils # (Auto) 0.1x10^3/uL (0.0-0.2) Sodium Level 138mmol/L (136-145) Potassium Level 3.3mmol/L (3.5-5.1) Chloride Level 101mmol/L (98-107) Carbon Dioxide Level 28mmol/L (21-32) Anion Gap 9 (6-14) Blood Urea Nitrogen 7mg/dL (8-26) Creatinine 0.7mg/dL (0.7-1.3) Estimated GFR (Cockcroft-Gault) 137.8 Glucose Level 103mg/dL (70-99) Calcium Level 8.8mg/dL (8.5-10.1) Medications Current Medications Morphine Sulfate 4 mg PRN Q2HR PRN IV MODERATE PAIN Last administered on 04:44; Start 09/30/16 at 06:30 Hydromorphone HCl (Dilaudid) 1 mg PRN Q4HRS PRN IV SEVERE PAIN; Start 09/30/16 at 06:30 Ondansetron HCl (Zofran) 4 mg PRN Q8HRS PRN IV NAUSEA/VOMITING; Start 09/30/16 at 06:30 Diphenhydramine HCl 25 mg 25 mg PRN Q6HRS PRN IVP ITCHING; Start 09/30/16 at 06 :30 Sodium Chloride (Iv Sodium Chloride 0.9% 1000ml Bag) 1,000 ml @ 100 mls/hr Q10H IV Last administered on 10/04/16 09:36; Start 09/30/16 at 06:30 Throat Lozenges (Cepacol Sore Throat Lozenge) 1 kristen PRN Q2HRS PRN PO SORE THROAT Last administered on 09/30/16 18:44; Start 09/30/16 at 10:15 Throat Lozenges (Chloraseptic) 1 spray PRN Q2HR PRN PO SORE THROAT Last administered on 10/01/16 02:47; Start 09/30/16 at 10:15 Acetaminophen (Tylenol) 650 mg PRN Q4HRS PRN MA MILD PAIN / TEMP; Start at 22:00 Ketorolac Tromethamine (Toradol) 15 mg PRN DAILY PRN IV MODERATE PAIN Last administered on 10/04/16 09:40; Start 10/01/16 at 02:30; Stop 10/06/16 at 02:29 Pantoprazole Sodium (Protonix Vial) 40 mg BID IVP Last administered on 09:08; Start 10/01/16 at 02:30; Stop 10/02/16 at 10:00; Status DC Morphine Sulfate 2 mg PRN Q2HR PRN IV PAIN Last administered on 10/05/16 00:35 ; Start 10/01/16 at 15:30 Pantoprazole Sodium (Protonix Vial) 40 mg DAILY IVP Last administered on 08:00; Start 10/03/16 at 09:00; Stop 10/03/16 at 13:08; Status DC Iohexol (Omnipaque 350 Mg/ml) 400 ml 1X ONCE PO ; Start 10/03/16 at 07:15; Stop 10/03/16 at 07:16; Status DC Info (Do NOT chart on this entry -- for MONITORING) 1 each PRN DAILY PRN MC SEE COMMENTS; Start 10/03/16 at 07:15; Stop 10/05/16 at 07:14; Status DC Pantoprazole Sodium (Protonix) 40 mg DAILYAC PO Last administered on 10/05/16 06:52; Start 10/04/16 at 07:30 Polyethylene Glycol (miraLAX PACKET) 17 gm DAILY PO Last administered on 08:43; Start 10/03/16 at 13:30 Acetaminophen/ Hydrocodone Bitart (Lortab 5/325) 1 tab PRN Q4HRS PRN PO PAIN Last administered on 10/05/16 08:45; Start 10/05/16 at 01:00 Cyclobenzaprine HCl (Flexeril) 10 mg PRN Q8HRS PRN PO MUSCLE SPASMS Last administered on 10/05/16 01:23; Start 10/05/16 at 01:00 Vitals/I & O Vital Sign - Last 24 Hours 10/04/16 10/04/16 10/04/16 10/04/16 15:00 19:00 20:00 21:57 Temp 98.4 98.1 98.4 98.1 Pulse 86 81 Resp 16 20 16 B/P 165/92 163/92 Pulse Ox 98 97 O2 Delivery Room Air Room Air Room Air Room Air 10/04/16 10/05/16 10/05/16 10/05/16 23:00 00:35 01:05 03:21 Temp 97.7 99.1 97.7 99.1 Pulse 88 82 Resp 20 16 16 20 B/P 154/80 153/81 Pulse Ox 96 97 O2 Delivery Room Air Room Air Room Air Room Air 10/05/16 10/05/16 10/05/16 10/05/16 07:00 08:10 08:45 10:00 Temp 98.4 98.4 Pulse 74 Resp 16 16 B/P 145/90 Pulse Ox 98 O2 Delivery Room Air Room Air Room Air Room Air Intake and Output 10/04/16 10/04/16 10/05/16 15:00 23:00 07:00 Output Total 100 ml 450 ml Balance -100 ml -450 ml ANA ROSA DIEHL III DO Oct 05, 2016 12:20
[2016-10-05] MEDS ORDERED: POTASSIUM CHLORIDE 20 MEQ TABLET.ER. PO ONE (12:30)
[2016-10-05 15:00] VITALS: BP 145/88
== END 2016-10-05 18:07 | disposition home or self-care (01) | DRG 390 ==
LOC: 4 NORTH 06:12
PROVIDERS: ADMIT Internal Medicine; ATTEND Internal Medicine
PROC: 0D9670Z Drainage of Stomach with Drainage Device, Via Natural or Artificial Opening (ICD-10-PCS; principal; 2016-09-30)
DX: K56.7 Ileus, unspecified (principal); E66.9 Obesity, unspecified; I10 Essential (primary) hypertension; J44.9 Chronic obstructive pulmonary disease, unspecified; K21.9 Gastro-esophageal reflux disease without esophagitis; M54.5 Low back pain; M19.90 Unspecified osteoarthritis, unspecified site; Z87.891 Personal history of nicotine dependence; Z68.31 Body mass index [BMI] 31.0-31.9, adult
CPT/HCPCS: 36415; 74000; 74022; 74250; 80048; 80053; 82271; 83605; 83735; 85027; 85610; 87641; C9113; J1885; J2270; J7030